=== PATIENT | female | born 1985 | race Caucasian/White ===

== ENCOUNTER 2017-01-20 08:59 | Emergency (ER) | payer OTHER ==
[2017-01-20] MEDS ORDERED: ASPIRIN 81 MG TABLET, CHEWABLE PO ONE (09:06)
[2017-01-20 10:11] LABS: ABSOLUTE BASOPHILS # (AUTO) 0.1 10^3/uL (0.0-0.2); ABSOLUTE EOSINOPHILS # (AUTO) 0.1 10^3/uL (0.0-0.6); ABSOLUTE LYMPHOCYTES (AUTO) 2.4 10^3/uL (0.5-4.7); ABSOLUTE MONOCYTES (AUTO) 0.4 10^3/uL (0.1-1.4); ABSOLUTE NEUT (AUTO) 3.5 10^3/uL (1.7-8.2); BASOPHILS % (AUTO) 0.8 % (0-2); EOSINOPHILS % (AUTO) 1.3 % (0-6); HEMATOCRIT 39.5 % (36.0-47.0); HEMOGLOBIN 13.5 g/dL (12.0-15.5); LYMPHOCYTES % (AUTO) 37.1 % (13-45); MEAN CORPUSCULAR HEMOGLOBIN 29.3 pg (27.0-33.4); MEAN CORPUSCULAR HGB CONC 34.1 g/dL (32.0-36.0); MEAN CORPUSCULAR VOLUME 86 fl (80-97); MONOCYTES % (AUTO) 6.3 % (3-13); RED CELL DISTRIBUTION WIDTH 13.7 % (11.5-14.0); SEGMENTED NEUTROPHILS % (AUTO) 54.5 % (42-78); WHITE BLOOD COUNT 6.5 10^3/uL (4.0-10.5)
[2017-01-20 10:34] LABS: ALANINE AMINOTRANSFERASE 73 U/L (9-52); ALBUMIN 4.7 g/dL (3.5-5.0); ALKALINE PHOSPHATASE 68 U/L (38-126); ANION GAP 16 (5-19); ASPARTATE AMINO TRANSFERASE 53 U/L (14-36); BILIRUBIN,DIRECT 0.1 mg/dL (0.0-0.4); BILIRUBIN,TOTAL 0.7 mg/dL (0.2-1.3); BLOOD UREA NITROGEN 11 mg/dL (7-20); CALCIUM 9.9 mg/dL (8.4-10.2); CARBON DIOXIDE 22 mmol/L (22-30); CHLORIDE 104 mmol/L (98-107); CREATINE KINASE 58 U/L (30-135); CREATININE RESULT 0.62 mg/dL (0.52-1.25); GLUCOSE 92 mg/dL (75-110); POTASSIUM 4.1 mmol/L (3.6-5.0); SODIUM 142.4 mmol/L (137-145); TOTAL PROTEIN 7.5 g/dL (6.3-8.2)
[2017-01-20 10:41] LABS: CREATINE KINASE MB 0.23 ng/mL (<4.55)
[2017-01-20 10:42] LABS: TROPONIN I < 0.012 ng/mL
--- NOTE | 2017-01-20 11:01 | ER Document Report ---
ED Cardiac - General Mode of Arrival: Ambulatory Information source: Patient TRAVEL OUTSIDE OF THE [place] IN LAST 30 DAYS: No - HPI Patient complains to provider of: Chest tightness, Shortness of breath Use of: Caffeine - Pepsi drinks Cardiac risk factors: denies: Diabetes, Smoker Associated symptoms: Other - see notes above <TANI JEWELL - Last Filed: 01/20/17 13:04> <ROBERT WILLIS - Last Filed: 01/20/17 20:25> - General Chief Complaint: Chest Pain Stated Complaint: CHEST PAIN Notes: 31-year-old female with history of a irregular heartbeat (diagnosed at 10 years of age) presents to the ED complaining of chest tightness that started 3 nights ago. Patient reports that she went to a med [facility] today and was told to go to the ED because "they can get everything done today." Patient reports that she is experiencing more frequent irregular heartbeat episodes which are accompanied with shortness of breath. She explains that shortness of breath is normally associated with her irregular heartbeat. Patient expresses concern that these episodes have become more frequent and the ease of onset of these episodes is abnormal. She explains that she lost her mother 11 days ago due to heart disease and believes that her symptoms are exacerbated due to anxiety. Patient also notes that she has noticed some swelling towards the left chest. Patient denies being . Patient claims that she does drink Pepsi daily but reports that she has been decreasing her intake. Patient denies drinking any energy drinks. Patient denies history or family history of DVTs. (TANI JEWELL) - Related Data Allergies/Adverse Reactions: codeine Allergy (Verified 01/20/17 09:05) Past Medical History - General Information source: Patient - Social History Smoking Status: Never Smoker Chew tobacco use (# tins/day): No Frequency of alcohol use: None Drug Abuse: None Family History: Reviewed & Not Pertinent Patient has suicidal ideation: No Patient has homicidal ideation: No - Past Medical History Cardiac Medical History: Reports: None, Other - Irregular heartbeat Denies: Hx DVT, Hx Hypercholesterolemia Endocrine Medical History: Denies: Hx Diabetes Mellitus Type 2 Renal/ Medical History: Denies: Hx Peritoneal Dialysis <TANI JEWELL - Last Filed: 01/20/17 13:04> Review of Systems - Review of Systems Constitutional: No symptoms reported EENT: No symptoms reported Cardiovascular: See HPI, Chest pain - "Chest tightness", Palpitations - "Irregular heartbeat episodes" Respiratory: See HPI, Short of breath Gastrointestinal: No symptoms reported Genitourinary: No symptoms reported Female Genitourinary: No symptoms reported. denies: Musculoskeletal: See HPI, Other - Swelling to the left chest Skin: No symptoms reported Hematologic/Lymphatic: No symptoms reported Neurological/Psychological: No symptoms reported -: Yes All other systems reviewed and negative <TANI JEWELL - Last Filed: 01/20/17 13:04> Physical Exam <TANI JEWELL - Last Filed: 01/20/17 13:04> <ROBERT WILLIS - Last Filed: 01/20/17 20:25> - Vital signs Vitals: Temp Pulse Resp BP Pulse Ox 98.3 F 62 16 128/82 H 96 01/20/17 09:15 01/20/17 09:15 01/20/17 09:15 01/20/17 09:15 01/20/17 09:15 - Notes Notes: GENERAL: Alert, interacts well. No acute distress. HEAD: Normocephalic, atraumatic. EYES: Pupils equal, round, and reactive to light. Extraocular movements intact. ENT: Oral mucosa moist, tongue midline. NECK: Full range of motion. Supple. Trachea midline. LUNGS: Clear to auscultation bilaterally, no wheezes, rales, or rhonchi. No respiratory distress. HEART: Regular rate and rhythm. No murmurs, gallops, or rubs. ABDOMEN: Soft, non-tender. Non-distended. Overweight. EXTREMITIES: Moves all 4 extremities spontaneously. No edema, radial and dorsalis pedis pulses 2/4 bilaterally. No cyanosis. NEUROLOGICAL: Alert and oriented x3. Normal speech. PSYCH: Normal affect, normal mood. SKIN: Warm, dry, normal turgor. No rashes or lesions noted. (TANI JEWELL) Course - Laboratory Result Diagrams: 01/20/17 09:38 01/20/17 09:38 - Diagnostic Test Radiology reviewed: Image reviewed, Reports reviewed - Chest x-ray impression: No acute radiographic findings in the chest. Chest CT impression: No evidence for pulmonary embolic disease. No acute consolidations or pleural effusions are identified. Large cystic mass in the upper abdomen as noted above which is incompletely visualized. This most likely is of ovarian etiology although other etiologies cannot be excluded. Complete CT of abdomen and pelvis with IV contrast is recommended for further evaluation. Other findings as noted above. - EKG Interpretation by Me EKG shows normal: Sinus rhythm, [place], Intervals, ST-T Waves - No ST elevation or depression. No T-wave inversion. Rate: Normal - First EK bpm, Bradycardia - Second EK bpm When compared to previous EKG there are: Other - First EKG resulted in poor voltage to lead 3 and was unable to be interpreted. Follow-up EKG was performed and showed sinus bradycardia at 55 bpm. <TANI JEWELL - Last Filed: 01/20/17 13:04> - Laboratory Result Diagrams: 01/20/17 09:38 01/20/17 09:38 <ROBERT WILLIS - Last Filed: 01/20/17 20:25> - Re-evaluation Re-evalutation: 01/20/17 20:25 CBC unremarkable, cardiac enzymes negative, CMP unremarkable except for slightly elevated AST and ALT, cardiac enzymes negative 2, hCG negative, EKG is nonischemic, CT angiogram of the chest was ordered after normal chest x-ray in order to rule out pulmonary embolism. This was negative for pulmonary embolism though it did show possible intra-abdominal mass. This is an incidental finding, recommended patient follow-up as an outpatient to have this more completely imaged as she is not having any abdominal pain or symptoms at this time. Patient is agreeable to following up with her primary care physician and her FOUNDER AND CHIEF EXECUTIVE OFFICER for further evaluation and treatment of this mass that is felt likely to be ovarian in origin. Patient is aware that it may represent cancer and she should have been worked up within the next month. (ROBERT WILLIS) - Vital Signs Vital signs: Temp Pulse Resp BP Pulse Ox 98.1 F 62 16 114/93 H 100 01/20/17 14:19 01/20/17 09:15 01/20/17 14:19 01/20/17 14:19 01/20/17 14:19 - Laboratory Laboratory results interpreted by me: 01/20/17 09:38 AST 53 H ALT 73 H Discharge <TANI JEWELL - Last Filed: 01/20/17 13:04> <ROBERT WILLIS - Last Filed: 01/20/17 20:25> - Discharge Clinical Impression: Palpitations, Chest pain with low risk for cardiac etiology, Anxiety as acute reaction to exceptional stress Mass in the abdomen Qualifiers: Abdominal location: left upper quadrant Qualified Code(s): R19.02 - Left upper quadrant abdominal swelling, mass and lump Condition: Stable Disposition: HOME, SELF-CARE Additional Instructions: Today your CAT scan showed a mass in your abdomen on the left-hand side. Radiology suspects this comes from your ovary however you must have a CAT scan of your abdomen and pelvis to find out exactly where comes from. Please talk to your FOUNDER AND CHIEF EXECUTIVE OFFICER to arrange this CAT scan as an outpatient. We need to do a CAT scan to see if it might be cancer. Today there was no sign of heart attack. Since your irregular heartbeat has become more common and more frequent is important that you follow up with your elderly caregiver as an outpatient within the next 2 weeks. They may wish to consider starting a Holter or event monitor. These palpitations may be increased due to increased anxiety and grief over your mother's . I have prescribed Prozac. This may help with some of the symptoms. Prescriptions: Fluoxetine HCl [Prozac] 20 mg PO DAILY #30 capsule Forms: Return to Work Referrals: TOMASZ TOUSSAINT, ASSOCIATE ARTISTIC DIRECTOR-C [Primary Care Provider] - Follow up in 1 week Scribe Attestation: 01/20/17 20:25 I personally performed the services described in the documentation, reviewed and edited the documentation which was dictated to the scribe in my presence, and it accurately records my words and actions. (ROBERT WILLIS) Scribe Documentation - Scribe Written by Kimberly:: Kimberly Avalos, 01/20/2017 1304 acting as scribe for :: Kerri <TANI JEWELL - Last Filed: 01/20/17 13:04>
--- NOTE | 2017-01-20 13:35 | EKG REPORT ---
SEVERITY:- NORMAL ECG - SINUS RHYTHM : Confirmed by: Jose F Bangura MD 20-Jan-2017 13:34:23
--- NOTE | 2017-01-20 13:35 | EKG REPORT ---
SEVERITY:- DEFECTIVE ECG - SINUS RHYTHM : Confirmed by: Jose F Bangura MD 20-Jan-2017 13:34:38
[2017-01-20 13:37] LABS: CREATINE KINASE MB < 0.22 ng/mL (<4.55); TROPONIN I < 0.012 ng/mL
[2017-01-20 14:24] VITALS: BP 114/93
== END 2017-01-20 14:36 | disposition home or self-care (01) ==
LOC: ER 08:59
DX: F41.9 Anxiety disorder, unspecified (principal); F43.0 Acute stress reaction; R07.89 Other chest pain; R06.02 Shortness of breath; R00.2 Palpitations; R19.02 Left upper quadrant abdominal swelling, mass and lump; R00.1 Bradycardia, unspecified; Z82.49 Family history of ischemic heart disease and other diseases of the circulatory system
CPT/HCPCS: 36415; 71010; 71275; 80053; 82550; 82553; 84484; 84703; 85025; 93005; 93010; 99285

== ENCOUNTER → 2017-01-29 | Outpatient (CLI) | payer OTHER | LOC: RAD 08:23 | PROVIDERS: ATTEND Specialist | DX: R19.07 Generalized intra-abdominal and pelvic swelling, mass and lump (principal) | CPT/HCPCS: 74177 ==

== ENCOUNTER 2017-02-10 05:10 | Inpatient (IN) | payer OTHER ==
[2017-02-06 10:14] LABS: HEMATOCRIT 40.3 % (36.0-47.0); HEMOGLOBIN 13.7 g/dL (12.0-15.5); HGB HCT DIFFERENCE 0.8; MEAN CORPUSCULAR HEMOGLOBIN 29.1 pg (27.0-33.4); MEAN CORPUSCULAR VOLUME 85 fl (80-97); RED BLOOD COUNT 4.72 10^6/uL (3.72-5.28); RED CELL DISTRIBUTION WIDTH 13.7 % (11.5-14.0); WHITE BLOOD COUNT 6.9 10^3/uL (4.0-10.5)
[2017-02-06 10:26] LABS: APPEARANCE,URINE SLIGHTLY-CLOUDY; BILIRUBIN,URINE NEGATIVE (NEGATIVE); GLUCOSE, URINE NEGATIVE (NEGATIVE); KETONES,URINE NEGATIVE (NEGATIVE); LEUKOCYTE ESTERASE,URINE NEGATIVE (NEGATIVE); NITRITE,URINE NEGATIVE (NEGATIVE); PROTEIN,URINE NEGATIVE (NEGATIVE); URINE SPECIFIC GRAVITY 1.008; UROBILINOGEN,URINE NEGATIVE mg/dL (<2.0)
[2017-02-06 10:39] LABS: ANION GAP 16 (5-19); BLOOD UREA NITROGEN 10 mg/dL (7-20); CALCIUM 10.3 mg/dL (8.4-10.2); CARBON DIOXIDE 26 mmol/L (22-30); CHLORIDE 99 mmol/L (98-107); CREATININE RESULT 0.69 mg/dL (0.52-1.25); GLUCOSE 86 mg/dL (75-110); POTASSIUM 4.6 mmol/L (3.6-5.0); SODIUM 141.4 mmol/L (137-145)
[~2017-02-10 05:10] MED LIST: CEFAZOLIN 1 GM/D5W RTU 1 GM/50 ML RTUPB IV PRN; RINGERS SOLUTION,LACTATED 1,000 ML IV PRN
[2017-02-10] MEDS ORDERED: HYDROMORPHONE HCL INJ/PF 2 MG/ML AMPULE ONE (06:41)
[2017-02-10] MEDS ORDERED: MIDAZOLAM 2 MG/2 ML INJ ONE (06:41)
[2017-02-10] MEDS ORDERED: FENTANYL CITRATE INJ/PF 250 MCG/5 ML AMPULE ONE (06:41)
[2017-02-10] MEDS ORDERED: IBUPROFEN INJ 800 MG/8 ML VIAL IV ONE (06:42)
[2017-02-10] MEDS ORDERED: PROPOFOL INJ 200 MG/20 ML VIAL IV ONE (06:42)
[2017-02-10] MEDS ORDERED: BUPIVACAINE INJ/PF LIPOSOME/PF 266 MG/20 ML SDV ONE (06:54)
[2017-02-10] MEDS ORDERED: EPHEDRINE SULFATE INJ 50 MG/1 ML AMPULE ONE (07:00)
[2017-02-10] MEDS ORDERED: FAMOTIDINE INJ/PF 20 MG/2 ML SDV IV ONE (07:04)
[2017-02-10] MEDS ORDERED: SCOPOLAMINE HYDROBROMIDE 1.5 MG PATCH.TD72 ONE (07:06)
[2017-02-10] MEDS ORDERED: ONDANSETRON HCL INJ/PF 4 MG/2 ML SDV IV PRN (07:52)
[2017-02-10] MEDS ORDERED: FENTANYL CITRATE INJ/PF 100 MCG/2 ML AMPUL IV PRN ×3 (07:52)
[2017-02-10] MEDS ORDERED: MEPERIDINE HCL/PF INJ 25 MG/1 ML DISP.SYRIN IV PRN (07:52)
[2017-02-10] MEDS ORDERED: DIPHENHYDRAMINE HCL 50 MG/ML VIAL IV PRN (07:52)
[2017-02-10] MEDS ORDERED: MORPHINE SULFATE 10 MG/ML INJ IV PRN (07:52)
[2017-02-10] MEDS ORDERED: PROMETHAZINE HCL INJ 25 MG/1 ML VIAL IV PRN ×2 (07:52)
[2017-02-10] MEDS ORDERED: NALOXONE HCL INJ/PF 0.4 MG/1 ML SDV ONE (08:38)
[2017-02-10] MEDS ORDERED: MORPHINE SULFATE 10 MG/ML INJ INJ PRN (09:44)
[2017-02-10] MEDS ORDERED: MORPHINE SULFATE 10 MG/ML INJ IM PRN (09:45)
[2017-02-10] MEDS ORDERED: ACETAMINOPHEN 100 ML IV ONE (10:09)
--- NOTE | 2017-02-10 10:18 | OPERATIVE REPORT E ---
Operative Report NAME: GÉNESIS PEOPLES : 1985 AGE: 31Y DATE OF SURGERY: 02/10/2017 ROOM: OR PREOPERATIVE DIAGNOSIS: Ovarian mass. POSTOPERATIVE DIAGNOSIS: Left ovarian mass. PROCEDURE: Exploratory laparotomy and left oophorectomy. SURGEON: SUSAN KEITA M.D. ANESTHESIA: General endotracheal. COMPLICATIONS: None. FINDINGS: Smooth glistening surfaced left ovarian mass. This was distinct from the left tube. The right tube and ovary and uterus were normal and no excrescences. Peritoneum throughout was smooth and glistening. Liver was palpated, smooth and glistening as well. Peritoneal washings were obtained. INDICATIONS FOR PROCEDURE: The patient had a symptomatic pelvic mass. CA 125 was 87. CTs demonstrated no adenopathy. There was a previous simple cyst on ultrasound as well as CT. The usual risks of bleeding, infection, anesthesia, damage to organs and tissues were discussed with the patient who understood. Possibility of further surgery was discussed with the patient should this appear to be a cancer issue. The patient seemed to understand this and agreed. PROCEDURE: The patient was taken to the operating room and placed in a modified lithotomy position. Adequate anesthesia was ascertained. Knight catheter was inserted after surgical time out was performed. The patient was in supine position. Through a midline incision, subcutaneous fat and fascia, the peritoneum was entered without difficulty. It was extended twice due to the size of the specimen. The specimen was ultimately brought into the operative field and the limits and blood supply were visualized. The proximity to the tube was clarified and using Ivana clamps the lesion was excised en toto, handed off the field and photographed. The pedicles were then closed with a 3-0 Vicryl stitch x2. Good hemostasis was assured. Peritoneal washing was obtained procedure upon entry into the abdomen. The parietal peritoneum and rectus fascia were closed with double-stranded PDS suture x2 superiorly and inferiorly. A subcuticular stitch of 3-0 plain gut was placed in the skin followed by skin carol. The patient tolerated the procedure well. All sponge and instrument counts were correct. DICTATING PHYSICIAN: SUSAN KEITA M.D. [id number] PHY#: [id number] ID: [id number] JOB#: [id number] ACCT: [id number] cc:SUSAN KEITA M.D. > JUANA
[2017-02-10] MEDS ORDERED: SUCCINYLCHOLINE CHLORIDE INJ 200 MG/10 ML VIAL ONE (11:49)
[2017-02-10] MEDS ORDERED: VECURONIUM BROMIDE INJ 10 MG VIAL IV ONE (11:49)
[2017-02-10] MEDS ORDERED: METOCLOPRAMIDE HCL INJ/PF 10 MG/2 ML SDV ONE (11:49)
[2017-02-10] MEDS ORDERED: ONDANSETRON HCL INJ/PF 4 MG/2 ML SDV ONE (11:49)
[2017-02-10] MEDS ORDERED: LIDOCAINE 2% INJ-PF (20 MG/ML) 10 ML AMPUL ONE (11:49)
[2017-02-10] MEDS ORDERED: GLYCOPYRROLATE INJ 0.4 MG/2 ML VIAL ONE (11:49)
[2017-02-10] MEDS ORDERED: DEXAMETHASONE SOD PHOSPHATE INJ 4 MG/1 ML VIAL ONE (11:49)
[2017-02-10] MEDS ORDERED: NEOSTIGMINE METHYLSULFATE 10 MG/10 ML VIAL ONE (11:49)
[2017-02-10] MEDS ORDERED: KETOROLAC TROMETHAMINE 60 MG/2 ML SDV ONE (11:49)
[2017-02-10] MEDS: RINGERS SOLUTION,LACTATED 1,000 ML IV PRN ×2 (12:14→20:24)
[2017-02-10] MEDS: CEFAZOLIN 1 GM/D5W RTU 1 GM/50 ML RTUPB IV SCH ×2 (12:14→18:01)
[2017-02-10] MEDS: IBUPROFEN 800 MG TABLET PO SCH ×2 (14:01→22:02)
[2017-02-10] MEDS ORDERED: HYDROMORPHONE HCL 2 MG TABLET PO PRN ×2 (14:19→14:21)
[2017-02-10] MEDS: MORPHINE SULFATE 10 MG/ML INJ INJ PRN (14:50)
[2017-02-11] MEDS ORDERED: RINGERS SOLUTION,LACTATED 500 ML IV ONE ×2 (01:15→10:00)
[2017-02-11] MEDS ORDERED: DIPHENHYDRAMINE HCL 25 MG CAPSULE PO PRN (05:00)
[2017-02-11] MEDS: IBUPROFEN 800 MG TABLET PO SCH ×3 (05:59→21:22)
[2017-02-11] MEDS: ONDANSETRON HCL INJ/PF 4 MG/2 ML SDV IV PRN ×3 (06:42→20:20)
[2017-02-11] MEDS: MORPHINE SULFATE 10 MG/ML INJ INJ PRN (06:42)
[2017-02-11 06:47] LABS: HEMATOCRIT 22.8 % (36.0-47.0); HGB HCT DIFFERENCE -0.3; MEAN CORPUSCULAR HEMOGLOBIN 28.6 pg (27.0-33.4); MEAN CORPUSCULAR HGB CONC 32.9 g/dL (32.0-36.0); MEAN CORPUSCULAR VOLUME 87 fl (80-97); RED BLOOD COUNT 2.63 10^6/uL (3.72-5.28); RED CELL DISTRIBUTION WIDTH 13.8 % (11.5-14.0); WHITE BLOOD COUNT 11.7 10^3/uL (4.0-10.5)
[2017-02-11 06:52] LABS: HEMOGLOBIN 7.5 g/dL (12.0-15.5)
[2017-02-11] MEDS: RINGERS SOLUTION,LACTATED 1,000 ML IV PRN ×2 (08:03→09:50)
[2017-02-11] MEDS: ACETAMINOPHEN 325 MG TABLET PO PRN (11:41)
[2017-02-11] MEDS: FLUOXETINE HCL 20 MG CAPSULE PO SCH (14:42)
[2017-02-11] MEDS: PROMETHAZINE HCL INJ 50 MG/1 ML VIAL IM PRN (15:49)
[2017-02-11 19:02] LABS: HEMATOCRIT 27.8 % (36.0-47.0); HEMOGLOBIN 9.3 g/dL (12.0-15.5); HGB HCT DIFFERENCE 0.1; MEAN CORPUSCULAR HEMOGLOBIN 28.4 pg (27.0-33.4); MEAN CORPUSCULAR HGB CONC 33.6 g/dL (32.0-36.0); MEAN CORPUSCULAR VOLUME 85 fl (80-97); RED BLOOD COUNT 3.28 10^6/uL (3.72-5.28); RED CELL DISTRIBUTION WIDTH 14.9 % (11.5-14.0); WHITE BLOOD COUNT 9.5 10^3/uL (4.0-10.5)
[2017-02-12] MEDS ORDERED: PROMETHAZINE HCL INJ 50 MG/1 ML VIAL ONE (01:27)
[2017-02-12] MEDS: PROMETHAZINE HCL INJ 50 MG/1 ML VIAL IM PRN (01:28)
[2017-02-12] MEDS: IBUPROFEN 800 MG TABLET PO SCH ×3 (06:01→21:42)
[2017-02-12] MEDS: RINGERS SOLUTION,LACTATED 1,000 ML IV PRN ×3 (06:21→21:43)
[2017-02-12 07:12] LABS: ABSOLUTE LYMPHOCYTES (AUTO) 2.1 10^3/uL (0.5-4.7); ABSOLUTE MONOCYTES (AUTO) 0.8 10^3/uL (0.1-1.4); ABSOLUTE NEUT (AUTO) 4.9 10^3/uL (1.7-8.2); BASOPHILS % (AUTO) 0.3 % (0-2); EOSINOPHILS % (AUTO) 0.1 % (0-6); HEMATOCRIT 26.8 % (36.0-47.0); HEMOGLOBIN 9.3 g/dL (12.0-15.5); HGB HCT DIFFERENCE 1.1; LYMPHOCYTES % (AUTO) 27.2 % (13-45); MEAN CORPUSCULAR HEMOGLOBIN 29.2 pg (27.0-33.4); MEAN CORPUSCULAR HGB CONC 34.7 g/dL (32.0-36.0); MEAN CORPUSCULAR VOLUME 84 fl (80-97); MONOCYTES % (AUTO) 9.6 % (3-13); RED BLOOD COUNT 3.19 10^6/uL (3.72-5.28); SEGMENTED NEUTROPHILS % (AUTO) 62.8 % (42-78); WHITE BLOOD COUNT 7.9 10^3/uL (4.0-10.5)
[2017-02-12 07:27] LABS: ANION GAP 9 (5-19); BLOOD UREA NITROGEN 8 mg/dL (7-20); CALCIUM 8.6 mg/dL (8.4-10.2); CARBON DIOXIDE 28 mmol/L (22-30); CHLORIDE 103 mmol/L (98-107); CREATININE RESULT 0.58 mg/dL (0.52-1.25); GLUCOSE 95 mg/dL (75-110); POTASSIUM 4.1 mmol/L (3.6-5.0); SODIUM 139.7 mmol/L (137-145)
[2017-02-12] MEDS: FLUOXETINE HCL 20 MG CAPSULE PO SCH (13:09)
[2017-02-12] MEDS: ONDANSETRON HCL INJ/PF 4 MG/2 ML SDV IV PRN (16:56)
--- NOTE | 2017-02-12 17:05 | RADIOLOGY REPORT (SQ) ---
EXAM DESCRIPTION: CTA CHEST COMPLETED DATE/TIME: 02/12/2017 4:45 pm REASON FOR STUDY: Checking for PE, SOB N83.299 OTHER OVARIAN CYST, UNSPECIFIED SIDE COMPARISON: 01/20/2017 and 01/29/2017 TECHNIQUE: CT scan of the chest performed using helical scanning technique with dynamic intravenous contrast injection. Images reviewed with lung, soft tissue and bone windows. Reconstructed coronal and sagittal MPR images reviewed. Additional 3 dimensional post-processing performed to develop Maximal Intensity Projection images (WA P). All images stored on PACS. All CT scanners at this facility use dose modulation, iterative reconstruction, and/or weight based d osing when appropriate to reduce radiation dose to as low as reasonably achievable (ALARA). [facility]: Dose Right [facility]: CareDose [facility]: Dose Right [facility]: Teradose 4D [facility]: Nommunity CONTRAST TYPE AND DOSE: 72 mL Isovue 370- low osmolar. RENAL FUNCTION: GFR > 60. RADIATION DOSE: 48.76 mGy. LIMITATIONS: Mild breathing motion artifact. FINDINGS: LUNGS AND PLEURA: Multi lobar Patchy consolidation -atelectasis is present in the right an d left lungs, basilar predominance. Small bilateral pleural effusions. AORTA AND GREAT VESSELS: No aneurysm or dissection. HEART: No pericardial effusion. PULMONARY ARTERIES: No emboli visualized in the main pulmonary arteries or the segmental branches. HILAR AND MEDIASTINAL STRUCTURES: Small nodes. HARDWARE: None in the chest. UPPER ABDOMEN: Small amount of scattered free fluid fatty liver. The previously seen abdominal mass is not included in the field of view. Limited exam. THYROID AND OTHER SOFT TISSUES: 2.3 cm heterogeneous nodule in the right thyroid. No adenopathy. BONES: No acute or significant finding. 3D MIPS: Confirm above findings. OTHER: No other significant finding. IMPRESSION: Multi lobar Patchy consolidation -atelectasis is present in the right and left lungs, ba silar predominance. Small bilateral pleural effusions. No pulmonary arterial emboli identified. 2.3 cm heterogeneous nodule in the right thyroid. TECHNICAL DOCUMENTATION: JOB ID: [id number] Quality ID # [id number]: Final reports with documentation of one or more dose reduction techniques (e.g., Au tomated exposure control, adjustment of the mA and/or kV according to patient size, use of iterative reconstruction technique) 2010 [employer]- All Rights Reserved
--- NOTE | 2017-02-12 18:43 | PDOC CONSULTATION ---
Consultation Consult Date: 02/12/17 Attending physician:: SUSAN KEITA Consult reason:: Hypoxia History of Present Illness Admission Date/PCP: 02/10/17 05:10 SUSAN KEITA MD Patient complains of: Shortness of breath History of Present Illness: GÉNESIS PEOPLES is a 31 year old female who has been in good health until earlier this month when she presented to the emergency room with complaints of chest pain. Patient had a chest CTA done at that time which was unremarkable except she was found to have an abdominal mass. The patient was seen by gynecology who performed surgery for removal of a large ovarian cyst. The patient has since then had complaints of shortness of breath. She reports that she becomes dyspneic with walking to the bathroom and back. She also has been noted to be hypoxic with oxygen saturations that dropped down to 87% in spite of being on 2 L of nasal cannula. The patient denies having any chest pain associated with this. She has received several units of packed red blood cells because of anemia postoperatively. The patient does also report having a productive cough with yellow sputum. A chest CTA was done again today and shows her to have bilateral patchy infiltrates. Patient does relate having some orthopnea. And minimal lower extremity edema. Past Medical History Cardiac Medical History: Reports: Other - Reports having an irregular heart rhythms since childhood. Pulmonary Medical History: Reports: None EENT Medical History: Reports: None Neurological Medical History: Reports: None Endocrine Medical History: Reports: None Renal/ Medical History: Reports: None Malignancy Medical History: Reports: None GI Medical History: Reports: None Musculoskeltal Medical History: Reports: None Psychiatric Medical History: Reports: Depression - Recently diagnosed after the of her mother last month. Traumatic Medical History: Reports: None Hematology: Reports: None Infectious Medical History: Reports: None Past Surgical History Past Surgical History: Reports: None Social History Information Source: Patient Lives with: Family Smoking Status: Never Smoker Frequency of Alcohol Use: None Hx Recreational Drug Use: No Hx Prescription Drug Abuse: No - Advance Directive Resuscitation Status: Full Code Family History Family History: Mother last month at age 47 from coronary artery disease. Biological father's health history is unknown Parental Family History Reviewed: Yes Children Family History Reviewed: No Sibling(s) Family History Reviewed.: No Medication/Allergy Home Medications: Biotin [Biotin 5 mg Tablet] 15 mg PO DAILY 02/12/17 Fluoxetine HCl [Prozac 20 mg Capsule] 20 mg PO DAILY 02/12/17 Loratadine [Claritin 10 mg Tablet] 10 mg PO DAILY 02/12/17 Allergies/Adverse Reactions: codeine Allergy (Verified 02/06/17 10:34) Review of Systems Constitutional: ABSENT: chills, fever(s), headache(s), weight gain, weight loss Eyes: ABSENT: visual disturbances Ears: ABSENT: hearing changes Cardiovascular: PRESENT: dyspnea on exertion, edema, orthropnea, palpitations. ABSENT: chest pain Respiratory: PRESENT: cough, dyspnea, sputum. ABSENT: hemoptysis Gastrointestinal: ABSENT: abdominal pain, constipation, diarrhea, hematemesis, hematochezia, nausea, vomiting Genitourinary: ABSENT: dysuria, hematuria Musculoskeletal: ABSENT: joint swelling Integumentary: ABSENT: rash, wounds Neurological: ABSENT: abnormal gait, abnormal speech, confusion, dizziness, focal weakness, syncope Psychiatric: PRESENT: depression Endocrine: ABSENT: cold intolerance, heat intolerance, polydipsia, polyuria Hematologic/Lymphatic: ABSENT: easy bleeding, easy bruising Physical Exam Vital Signs: Temp Pulse Resp BP Pulse Ox 100.0 F 76 16 104/59 L 94 02/12/17 15:24 02/12/17 15:24 02/12/17 15:24 02/12/17 15:24 02/12/17 15:24 Intake & Output 02/11/17 02/12/17 02/13/17 06:59 06:59 06:59 Intake Total 1950 2140 Output Total 1000 3550 Balance 950 -1410 General appearance: PRESENT: no acute distress Head exam: PRESENT: atraumatic, normocephalic Eye exam: PRESENT: conjunctiva pink, EOMI, PERRLA. ABSENT: scleral icterus Ear exam: PRESENT: normal external ear exam Mouth exam: PRESENT: moist, tongue midline Neck exam: ABSENT: carotid bruit, JVD, lymphadenopathy, thyromegaly Respiratory exam: PRESENT: decreased breath sounds - Decreased breath sounds in the bases.. ABSENT: rales, rhonchi, wheezes Cardiovascular exam: PRESENT: RRR. ABSENT: diastolic murmur, rubs, systolic murmur Pulses: PRESENT: normal dorsalis pedis pul Vascular exam: PRESENT: normal capillary refill GI/Abdominal exam: PRESENT: other - Patient has a midline surgical wound with carol. Clean dry and intact. Rectal exam: PRESENT: deferred Extremities exam: PRESENT: pedal edema - Trace pretibial edema. ABSENT: calf tenderness, clubbing Neurological exam: PRESENT: alert, awake, oriented to person, oriented to place , oriented to time, oriented to situation, CN II-XII grossly intact. ABSENT: motor sensory deficit Psychiatric exam: PRESENT: appropriate affect Skin exam: PRESENT: dry, intact, warm, other - Abdomen has the surgical wound but is dry clean and intact. ABSENT: cyanosis, rash Results Laboratory Results: 02/12/17 06:47 02/12/17 06:47 02/11/17 02/11/17 02/12/17 09:54 18:50 06:47 WBC 9.5 7.9 RBC 3.28 L 3.19 L Hgb 9.3 L 9.3 L Hct 27.8 L 26.8 L MCV 85 84 MCH 28.4 29.2 MCHC 33.6 34.7 RDW 14.9 H 15.0 H Plt Count 163 136 L Seg Neutrophils % 62.8 Lymphocytes % 27.2 Monocytes % 9.6 Eosinophils % 0.1 Basophils % 0.3 Absolute Neutrophils 4.9 Absolute Lymphocytes 2.1 Absolute Monocytes 0.8 Absolute Eosinophils 0.0 Absolute Basophils 0.0 Sodium Potassium Chloride Carbon Dioxide Anion Gap BUN Creatinine Est GFR ( Amer) Est GFR (Non-Af Amer) Glucose Calcium Blood Type A POSITIVE Antibody Screen NEGATIVE 02/12/17 06:47 WBC RBC Hgb Hct MCV MCH MCHC RDW Plt Count Seg Neutrophils % Lymphocytes % Monocytes % Eosinophils % Basophils % Absolute Neutrophils Absolute Lymphocytes Absolute Monocytes Absolute Eosinophils Absolute Basophils Sodium 139.7 Potassium 4.1 Chloride 103 Carbon Dioxide 28 Anion Gap 9 BUN 8 Creatinine 0.58 Est GFR ( Amer) > 60 Est GFR (Non-Af Amer) > 60 Glucose 95 Calcium 8.6 Blood Type Antibody Screen Impressions: Chest/Abdomen CTA 02/12/17 00:00 IMPRESSION: Multi lobar Patchy consolidation -atelectasis is present in the right and left lungs, basilar predominance. Small bilateral pleural effusions. No pulmonary arterial emboli identified. 2.3 cm heterogeneous nodule in the right thyroid. Assessment & Plan - Diagnosis (1) Hypoxia Is this a current diagnosis for this admission?: YesPlan: Patient has patchy infiltrates on the chest with the suggestive of pneumonia. We will start the patient on Levaquin and obtain blood and sputum cultures. Patient also does have some pretibial edema as well as some orthopnea. She has received packed red blood cells. Will give Lasix dose 1. We will also check a BNP. If her BNP comes back abnormal would recommend that we get an echocardiogram tomorrow. We will check an ABG to make certain she does not have any CO2 retention. The possibility of this being narcotic related is considered however she seemed alert and oriented at the time of my interview and this does not appear to be related to medications. The patient had no obvious pulmonary embolism present on the chest CT. (2) Pneumonia Is this a current diagnosis for this admission?: YesPlan: Patient will be started on Levaquin. Will obtain blood and sputum cultures. - Time Time Spent: 50 to 70 Minutes - Inpatient Certification Medical Necessity: Need Close Monitoring Due to Risk of Patient Decompensation, Need for IV Antibiotics
[2017-02-12 19:12] LABS: ABSOLUTE LYMPHOCYTES (AUTO) 1.3 10^3/uL (0.5-4.7); ABSOLUTE MONOCYTES (AUTO) 0.7 10^3/uL (0.1-1.4); ABSOLUTE NEUT (AUTO) 5.8 10^3/uL (1.7-8.2); BASOPHILS % (AUTO) 0.2 % (0-2); EOSINOPHILS % (AUTO) 0.1 % (0-6); HEMATOCRIT 27.4 % (36.0-47.0); HEMOGLOBIN 9.4 g/dL (12.0-15.5); HGB HCT DIFFERENCE 0.8; LYMPHOCYTES % (AUTO) 17.1 % (13-45); MEAN CORPUSCULAR HEMOGLOBIN 29.3 pg (27.0-33.4); MEAN CORPUSCULAR HGB CONC 34.5 g/dL (32.0-36.0); MEAN CORPUSCULAR VOLUME 85 fl (80-97); MONOCYTES % (AUTO) 8.8 % (3-13); RED BLOOD COUNT 3.22 10^6/uL (3.72-5.28); SEGMENTED NEUTROPHILS % (AUTO) 73.8 % (42-78); WHITE BLOOD COUNT 7.8 10^3/uL (4.0-10.5)
[2017-02-12] MEDS ORDERED: FUROSEMIDE INJ/PF 20 MG/2 ML SDV IV ONE (20:00)
[2017-02-12] MEDS: LEVOFLOXACIN 750 MG/D5W RTU 750 MG/150 ML RTUPB IV SCH (20:30)
[2017-02-12 20:48] LABS: ARTERIAL BLOOD BASE EXCESS 3.3 mmol/L; ARTERIAL BLOOD O2 SATURATION 95.7 % (94-98)
[2017-02-13] MEDS: IBUPROFEN 800 MG TABLET PO SCH ×3 (05:20→22:31)
[2017-02-13] MEDS: RINGERS SOLUTION,LACTATED 1,000 ML IV PRN ×2 (05:24→05:37)
--- NOTE | 2017-02-13 10:42 | PDOC PROGRESS REPORT ---
Subjective Progress Note for:: 02/13/17 Subjective:: Shortness of breath has improved. Physical Exam Vital Signs: Temp Pulse Resp BP Pulse Ox 98.0 F 64 16 121/66 97 02/13/17 07:40 02/13/17 07:40 02/13/17 07:40 02/13/17 07:40 02/13/17 07:40 Intake & Output 02/12/17 02/13/17 02/14/17 06:59 06:59 06:59 Intake Total 2140 540 Output Total 3550 1999 Balance -1410 -1460 General appearance: PRESENT: no acute distress Eye exam: PRESENT: conjunctiva pink. ABSENT: scleral icterus Mouth exam: PRESENT: moist, tongue midline Neck exam: ABSENT: JVD Respiratory exam: PRESENT: clear to auscultation catarino. ABSENT: rales, rhonchi, wheezes Cardiovascular exam: PRESENT: RRR. ABSENT: diastolic murmur, rubs, systolic murmur GI/Abdominal exam: PRESENT: normal bowel sounds, soft. ABSENT: distended, guarding, mass, organolmegaly, rebound, tenderness Extremities exam: ABSENT: calf tenderness, clubbing, pedal edema Neurological exam: PRESENT: alert, awake, oriented to person, oriented to place , oriented to time, oriented to situation, CN II-XII grossly intact. ABSENT: motor sensory deficit Psychiatric exam: PRESENT: appropriate affect Skin exam: PRESENT: dry, intact, warm. ABSENT: cyanosis, rash Results Laboratory Results: 02/12/17 18:45 02/12/17 06:47 02/12/17 02/12/17 18:45 20:35 WBC 7.8 RBC 3.22 L Hgb 9.4 L Hct 27.4 L MCV 85 MCH 29.3 MCHC 34.5 RDW 15.0 H Plt Count 133 L Seg Neutrophils % 73.8 Lymphocytes % 17.1 Monocytes % 8.8 Eosinophils % 0.1 Basophils % 0.2 Absolute Neutrophils 5.8 Absolute Lymphocytes 1.3 Absolute Monocytes 0.7 Absolute Eosinophils 0.0 Absolute Basophils 0.0 Carbonic Acid 1.23 HCO3/H2CO3 Ratio 22:1 ABG pH 7.45 ABG pCO2 40.9 ABG pO2 76.1 L ABG HCO3 27.6 H ABG O2 Saturation 95.7 ABG Base Excess 3.3 FiO2 2.5L 02/12/17 18:45 NT-Pro-B Natriuret Pep 1170 H Impressions: Chest/Abdomen CTA 02/12/17 00:00 IMPRESSION: Multi lobar Patchy consolidation -atelectasis is present in the right and left lungs, basilar predominance. Small bilateral pleural effusions. No pulmonary arterial emboli identified. 2.3 cm heterogeneous nodule in the right thyroid. Assessment & Plan - Diagnosis (1) Hypoxia Is this a current diagnosis for this admission?: YesPlan: Patient reports that she is feeling better after getting IV Lasix yesterday. Patient was started on Levaquin empirically for the possibility of pneumonia and was given IV Lasix. Her BNP came back elevated and echocardiogram has been ordered for today. Given her volume overload and her strong family history of coronary artery disease I have recommended that we consult cardiology. We will give an additional dose of Lasix today. (2) Pneumonia Is this a current diagnosis for this admission?: YesPlan: Patient's CTA showed questionable infiltrate. This could possibly related to volume overload and not pneumonia. Would however recommend that we continue with the Levaquin for 5 days total. - Time Time Spent with patient: 25-34 minutes - Inpatient Certification Medical Necessity: Need Close Monitoring Due to Risk of Patient Decompensation, Need for IV Antibiotics
[2017-02-13] MEDS ORDERED: FUROSEMIDE INJ/PF 20 MG/2 ML SDV IV ONE (10:45)
[2017-02-13] MEDS: ACETAMINOPHEN 325 MG TABLET PO PRN ×2 (11:39→18:12)
[2017-02-13] MEDS: FLUOXETINE HCL 20 MG CAPSULE PO SCH (12:54)
--- NOTE | 2017-02-13 13:57 | XCELERA REPORT ---
[address] [address] Transthoracic Echocardiogram Report Name: GÉNESIS PEOPLES Age: 31 yrs Gender: Female : 1985 Patient Status: Inpatient Patient Location: 2N\S\210\S\A Study Date: 02/13/2017 10:40 AM Height: 60 in Weight: 200 lb BSA: 1.9 m2 Procedure: A complete two-dimensional transthoracic echocardiogram was performed (2D, M-mode, spectral and color flow Doppler). The study was technically difficult with many images being suboptimal in quality. The apical views were difficult to obtain and are suboptimal in quality. The subcostal views were difficult to obtain and are suboptimal in quality. Reason For Study: hypoxia Ordering Physician: PETRONA HILL Performed By: Makayla Sol Interpretation Summary The study was technically difficult with many images being suboptimal in quality. LV diastolic function not assessed. There is normal left ventricular wall thickness. The left ventricle is grossly normal size. Wall motion cannot be accurately commented on, but no definite regional wall motion abnormalities noted. The right ventricular systolic function is normal. The right atrium is normal in size The left atrium is mildly dilated. There is a trace to mild amount of mitral regurgitation There is no mitral valve stenosis. There is no aortic valve stenosis No aortic regurgitation is present. There is a mild amount of tricuspid regurgitation There is mild to moderate pulmonary hypertension by echo Best estimated RVSP is approximately 45 mm/Hg. The inferior vena cava appeared normal and decreased < 50% with respiration (RAP 10-15 mmHg) The aortic root is not well visualized but is probably normal size. Minimal pericardial effusion. MMode/2D Measurements \T\ Calculations RVDd: 2.5 cm LVIDd: 5.1 cm FS: 40.1 % Ao root diam: 2.6 cm IVSd: 0.82 cm LVIDs: 3.1 cm EDV(Teich): 124.5 ml LVPWd: 0.85 cm ESV(Teich): 36.8 ml Ao root area: 5.3 cm2 EF(Teich): 70.4 % LA dimension: 3.8 cm Doppler Measurements \T\ Calculations MV E max nano: MV P1/2t max nano: Ao V2 max: LV V1 max P.3 cm/sec 89.8 cm/sec 144.6 cm/sec 5.2 mmHg MV A max nano: MV P1/2t: 55.3 msec Ao max PG: LV V1 max: 56.8 cm/sec 8.4 mmHg 114.5 cm/sec MV E/A: 1.6 MVA(P1/2t): 4.0 cm2 MV dec slope: 476.1 cm/sec2 MV dec time: 0.19 sec PA V2 max: PI end-d nano: TR max nano: 93.8 cm/sec 158.1 cm/sec 333.9 cm/sec PA max PG: TR max P.5 mmHg 44.6 mmHg Left Ventricle The left ventricle is grossly normal size. There is normal left ventricular wall thickness. The left ventricular ejection fraction is normal. LV diastolic function not assessed. Wall motion cannot be accurately commented on, but no definite regional wall motion abnormalities noted. Right Ventricle The right ventricle is grossly normal size. There is normal right ventricular wall thickness. The right ventricular systolic function is normal. Atria The right atrium is normal in size. The left atrium is mildly dilated. Interarterial septum not well visualized and not well dopplered. Cannot comment on ASD/PFO presence. Mitral Valve The mitral valve is grossly normal. There is no mitral valve stenosis. There is a trace to mild amount of mitral regurgitation. Aortic Valve The aortic valve is trileaflet and normal in structure. The gradient across the valve reflects no hemodynamically significant degree of stenosis. No insufficiency seen. There is no aortic valve stenosis. No aortic regurgitation is present. Tricuspid Valve The tricuspid valve is not well visualized, but is grossly normal. There is no tricuspid stenosis. There is a mild amount of tricuspid regurgitation. There is mild to moderate pulmonary hypertension by echo. Best estimated RVSP is approximately 45 mm/Hg. Pulmonic Valve The pulmonic valve is not well visualized. Great Vessels The aortic root is not well visualized but is probably normal size. The inferior vena cava appeared normal and decreased < 50% with respiration (RAP 10-15 mmHg). Effusions Minimal pericardial effusion. : PETRONA HILL > Danyelle Rice
--- NOTE | 2017-02-13 18:42 | EKG REPORT ---
SEVERITY:- NORMAL ECG - SINUS RHYTHM : Confirmed by: Jose F Bangura MD 13-Feb-2017 18:41:45
--- NOTE | 2017-02-13 19:28 | PDOC CONSULTATION ---
Consultation Consult Date: 02/13/17 Attending physician:: PETRONA HILL Consult reason:: Shortness of breath, CHF History of Present Illness Admission Date/PCP: 02/10/17 05:10 SUSAN KEITA MD Patient complains of: Shortness of breath History of Present Illness: GÉNESIS PEOPLES is a 31 year old female who has been in good health until earlier this month when she presented to the emergency room with complaints of chest pain. Patient had a chest CTA done at that time which was unremarkable except she was found to have an abdominal mass. The patient was seen by gynecology who performed surgery for removal of a large ovarian cyst. The patient has since then had complaints of shortness of breath. She reports that she becomes dyspneic with walking to the bathroom and back. She also has been noted to be hypoxic with oxygen saturations that dropped down to 87% in spite of being on 2 L of nasal cannula. The patient denies having any chest pain associated with this. She has received several units of packed red blood cells because of anemia postoperatively. The patient does also report having a productive cough with yellow sputum. A chest CTA was done again today and shows her to have bilateral patchy infiltrates. Patient does relate having some orthopnea. And minimal lower extremity edema. Patient had lab work performed which showed BNP being elevated. A 2D echo was performed which I have reviewed. I did order a 12-lead EKG. On questioning patient did admit to having history of habitual snoring, daytime fatigue and sleepiness. Patient had never been diagnosed to have sleep apnea. Patient also describes having had gained significant weight recently. Past Medical History Cardiac Medical History: Reports: Other - Reports having an irregular heart rhythms since childhood. Denies: Atrial Fibrillation, Congestive Heart Failure, Coronary Artery Disease, Myocardial Infarction, Hyperlipidema, Hypertension, Peripheral Vascular Disease, Heart Murmur Pulmonary Medical History: Reports: None EENT Medical History: Reports: None Neurological Medical History: Reports: None Endocrine Medical History: Reports: None Renal/ Medical History: Reports: None Denies: End Stage Renal Disease Malignancy Medical History: Reports: None Denies: Breast Cancer, Cervical Cancer, Ovarian Cancer GI Medical History: Reports: None Musculoskeltal Medical History: Reports: None Psychiatric Medical History: Reports: Depression - Recently diagnosed after the of her mother last month. Denies: Bipolar Disorder, Post Traumatic Stress Disorder Traumatic Medical History: Reports: None Hematology: Reports: None Infectious Medical History: Reports: None Past Surgical History Past Surgical History: Reports: None, Other - Patient just admitted post ovarian cyst removal Social History Information Source: Patient Lives with: Family Smoking Status: Never Smoker Frequency of Alcohol Use: None Hx Recreational Drug Use: No Hx Prescription Drug Abuse: No - Advance Directive Resuscitation Status: Full Code Family History Family History: Reviewed & Not Pertinent Parental Family History Reviewed: Yes Children Family History Reviewed: Yes Sibling(s) Family History Reviewed.: Yes Medication/Allergy Home Medications: Biotin [Biotin 5 mg Tablet] 15 mg PO DAILY 02/12/17 Fluoxetine HCl [Prozac 20 mg Capsule] 20 mg PO DAILY 02/12/17 Loratadine [Claritin 10 mg Tablet] 10 mg PO DAILY 02/12/17 Allergies/Adverse Reactions: codeine Allergy (Verified 02/06/17 10:34) Review of Systems Review of Systems: Please see history of present illness and past medical history as wall. Constitutional: No fever or chills reported. Head : No recent chronic headaches, recent head injury. Eyes: No recent eye pain, diplopia, redness, discharge, acute visual changes. Ears: No recent chronic ear pain, acute hearing loss, ear discharge. Oral cavity: No recent ulcerations, bleeding, oral cavity discomfort. Neck: No recent acute neck pain reported. Hematologic: No recent easy bruising or bleeding or hematologic malignancy reported. Lymphatic: No recent lymphatic malignancy, chronic lymphadenopathy reported yet Cardiovascular system review: See history of present illness. Respiratory system review: No recent chronic cough, hemoptysis, blood clots in the lungs reported. Mild Shortness of breath on exertion Gastrointestinal system review: Negative for any recent acute or chronic abdominal pain, hematemesis, melena, recent change in bowel habits. Genitourinary system review: No recent acute or chronic hematuria, flank pain, UTI etc. reported. Skin system review: Negative for any recent abnormal bruising, no rash, no pruritus reported. Neurologic: No prior history of strokes, mini strokes, seizure disorder. Psychologic: No history of major psychosis or major depression reported. Musculoskeletal: Minor aches and pains reported. No acute joint swelling reported. Endocrine: No recent polyuria, polydipsia, recent heat or cold intolerance. Physical Exam Vital Signs: Temp Pulse Resp BP Pulse Ox 98.4 F 69 20 118/67 91 L 02/13/17 15:04 02/13/17 15:04 02/13/17 15:04 02/13/17 15:04 02/13/17 15:04 Intake & Output 02/12/17 02/13/17 02/14/17 06:59 06:59 06:59 Intake Total 2140 540 1140 Output Total 3550 2000 3200 Balance -1410 -1460 -2060 Exam: GENERAL: well-nourished and in no acute distress. Alert and oriented x3 HEAD: Atraumatic, normocephalic. EYES: Pupils equal round and reactive to light, extraocular movements intact, sclera anicteric, conjunctiva are normal. ENT: TMs normal, nares patent, oropharynx clear without exudates. Moist mucous membranes. No oral ulcerations or bleeding gums noted NECK: supple without lymphadenopathy. Trachea is central. No cervical or axillary lymphadenopathy noted. Carotids are 2+, JVD 10-12 cm LUNGS: Respiration seems nonlabored, no significant accessory muscle action noted. Few bibasilar fine crackles noted. No wheezes rales or rhonchi noted. No significant dullness noted on percussion. CHEST: Palpation of the chest wall shows no significant chest wall tenderness. No other significant abnormalities noted. 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 ABDOMEN: Soft, no significant tenderness appreciated, normoactive bowel sounds. No guarding, no rebound. No rigidity noted . No masses appreciated. EXTREMITIES: Pedal pulses are 1-2+, no calf tenderness noted. No clubbing or cyanosis. 1+ pedal edema noted NEUROLOGICAL: Focused neurological exam showed no significant neurologic deficit. Normal speech, no focal weakness appreciated. PSYCH: Normal mood, normal affect. Judgment and insight within normal limits. SKIN: No significant ecchymosis, rash, ulcerations or signs of pruritus noted. MUSCULOSKELETAL EXAM: No significant joint swelling noted. Results Laboratory Results: 02/12/17 18:45 02/12/17 06:47 02/12/17 20:35 Carbonic Acid 1.23 HCO3/H2CO3 Ratio 22:1 ABG pH 7.45 ABG pCO2 40.9 ABG pO2 76.1 L ABG HCO3 27.6 H ABG O2 Saturation 95.7 ABG Base Excess 3.3 FiO2 2.5L 02/12/17 18:45 NT-Pro-B Natriuret Pep 1170 H EKG Comments: Shows sinus rhythm, and is WNL Impressions: Chest/Abdomen CTA 02/12/17 00:00 IMPRESSION: Multi lobar Patchy consolidation -atelectasis is present in the right and left lungs, basilar predominance. Small bilateral pleural effusions. No pulmonary arterial emboli identified. 2.3 cm heterogeneous nodule in the right thyroid. Assessment & Plan - Diagnosis (1) CHF (congestive heart failure) Qualifiers: Congestive heart failure type: diastolic Congestive heart failure chronicity: acute Qualified Code(s): I50.31 - Acute diastolic (congestive ) heart failure Is this a current diagnosis for this admission?: Yes (2) Atelectasis of both lungs Is this a current diagnosis for this admission?: Yes (3) Hypoxia Is this a current diagnosis for this admission?: Yes (4) Sleep disorder breathing Is this a current diagnosis for this admission?: Yes (5) Pulmonary hypertension Is this a current diagnosis for this admission?: Yes - Notes Notes: CHF: Slaughter to be related to volume overload in the setting of diastolic dysfunction. Agree with IV Lasix. Atelectasis both lung bases: This is possibly because of hypoxemia. Patient will benefit from incentive spirometry. Hypoxemia: Related to height atelectasis and CHF. Pulmonary embolism ruled out. Sleep disordered breathing: Patient physical exam and symptoms suggest underlying sleep apnea syndrome. Patient has been advised to undergo a sleep study. Pulmonary hypertension: Most likely related to diastolic dysfunction. Will consider repeating the echo in several weeks. Patient advised salt and fluid restriction, weight loss etc. Patient is agreeable to follow-up with me. - Time Time Spent: 30 to 50 Minutes - CODE STATUS was discussed, patient remains full code. Surrogate decision-maker unchanged. Multiple medical problems were addressed. More than 50% of the time spent coordinating care, discussing management plans with involved caregivers. Management plans discussed with involved personnels. Medical decision making was of moderate to high complexity , patient's has multiple comorbidities. Medications reviewed and adjusted accordingly: Yes
[2017-02-13] MEDS: LEVOFLOXACIN 750 MG/D5W RTU 750 MG/150 ML RTUPB IV SCH (20:39)
[2017-02-14] MEDS: IBUPROFEN 800 MG TABLET PO SCH (05:00)
[2017-02-14 06:28] LABS: ANION GAP 11 (5-19); BLOOD UREA NITROGEN 14 mg/dL (7-20); CALCIUM 8.9 mg/dL (8.4-10.2); CARBON DIOXIDE 30 mmol/L (22-30); CHLORIDE 99 mmol/L (98-107); CREATININE RESULT 0.62 mg/dL (0.52-1.25); GLUCOSE 100 mg/dL (75-110); POTASSIUM 3.6 mmol/L (3.6-5.0); SODIUM 139.8 mmol/L (137-145)
--- NOTE | 2017-02-14 08:40 | RADIOLOGY REPORT (SQ) ---
EXAM DESCRIPTION: CHEST PA/LAT COMPLETED DATE/TIME: 02/14/2017 8:00 am REASON FOR STUDY: followup CHF COMPARISON: 01/20/2017 EXAM PARAMETERS: NUMBER OF VIEWS: two views TECHNIQUE: Digital Frontal and Lateral radiographic views of the chest acquired. RADIATION DOSE: NA LIMITATIONS: none FINDINGS: LUNGS AND PLEURA: No opacities, masses or pneumothorax. There is some blunting of the cos tophrenic angles posteriorly which I cannot exclude as tiny pleural effusion. Linear density is iden tified in the right mid lung field most consistent with subsegmental atelectasis. MEDIASTINUM AND HILAR STRUCTURES: No masses or contour abnormalities. HEART AND VASCULAR STRUCTURES: Heart normal size. No evidence for failure. BONES: No acute findings. HARDWARE: None in the chest. OTHER: No other significant finding. IMPRESSION: There is some blunting of the costophrenic angles posteriorly which I cannot exclude as tiny pleural effusions. Linear density in the right mid lung field most consistent with subsegmental atelectasis. Other findings as noted above TECHNICAL DOCUMENTATION: JOB ID: [id number]- All Rights Reserved
[2017-02-14 09:44] VITALS: BP 125/71
[2017-02-14] MEDS ORDERED: FUROSEMIDE 40 MG TABLET PO SCH (10:00)
--- NOTE | 2017-02-14 10:11 | PDOC PROGRESS REPORT ---
Subjective Progress Note for:: 02/14/17 Subjective:: Shortness of breath has improved. Physical Exam Vital Signs: Temp Pulse Resp BP Pulse Ox 98.6 F 66 20 125/71 98 02/14/17 09:38 02/14/17 09:38 02/14/17 09:38 02/14/17 09:38 02/14/17 09:38 Intake & Output 02/13/17 02/14/17 02/15/17 06:59 06:59 06:59 Intake Total 540 1440 Output Total 2000 3200 Balance -1460 -1760 General appearance: PRESENT: no acute distress Eye exam: PRESENT: conjunctiva pink. ABSENT: scleral icterus Mouth exam: PRESENT: moist, tongue midline Neck exam: ABSENT: JVD Respiratory exam: PRESENT: clear to auscultation catarino. ABSENT: rales, rhonchi, wheezes Cardiovascular exam: PRESENT: RRR. ABSENT: diastolic murmur, rubs, systolic murmur Vascular exam: PRESENT: normal capillary refill GI/Abdominal exam: PRESENT: normal bowel sounds, soft. ABSENT: distended, guarding, mass, organolmegaly, rebound, tenderness Extremities exam: ABSENT: calf tenderness, clubbing, pedal edema Neurological exam: PRESENT: alert, awake, oriented to person, oriented to place , oriented to time, oriented to situation, CN II-XII grossly intact. ABSENT: motor sensory deficit Psychiatric exam: PRESENT: appropriate affect Skin exam: PRESENT: dry, intact, warm. ABSENT: cyanosis, rash Results Laboratory Results: 02/12/17 18:45 02/14/17 06:05 02/14/17 06:05 Sodium 139.8 Potassium 3.6 Chloride 99 Carbon Dioxide 30 Anion Gap 11 BUN 14 Creatinine 0.62 Est GFR ( Amer) > 60 Est GFR (Non-Af Amer) > 60 Glucose 100 Calcium 8.9 02/12/17 02/14/17 18:45 06:05 NT-Pro-B Natriuret Pep 1170 H 1060 H Impressions: Chest/Abdomen CTA 02/12/17 00:00 IMPRESSION: Multi lobar Patchy consolidation -atelectasis is present in the right and left lungs, basilar predominance. Small bilateral pleural effusions. No pulmonary arterial emboli identified. 2.3 cm heterogeneous nodule in the right thyroid. Chest X-Ray 02/14/17 08:00 IMPRESSION: There is some blunting of the costophrenic angles posteriorly which I cannot exclude as tiny pleural effusions. Linear density in the right mid lung field most consistent with subsegmental atelectasis. Other findings as noted above Assessment & Plan - Diagnosis (1) Hypoxia Is this a current diagnosis for this admission?: YesPlan: Patient. She is stable for discharge to home from a medical standpoint. Recommend that we give Lasix 40 mg p.o. daily along with Levaquin 750 mg p.o. daily 3 days. Patient was given prescriptions for these. The patient most likely has congestive heart failure diastolic dysfunction of the cause along with some mild pulmonary hypertension. She may have obstructive sleep apnea is contributing to both of these. She will follow-up with cardiology as an outpatient in the next 2 weeks and will need to have a sleep study done at that time. Will defer to cardiology as to timing given her recent surgery and whether or not she needs a stress test to be done. (2) Pneumonia Is this a current diagnosis for this admission?: Yes - Time Time Spent with patient: 15-24 minutes - Plan Summary Plan Summary: She will be discharged home today. Will follow up with cardiology in 2 weeks and will need a sleep study and a stress test scheduled in the near future
--- NOTE | 2017-02-14 18:27 | PDOC PROGRESS REPORT ---
Subjective Progress Note for:: 02/14/17 Subjective:: Patient was seen on morning rounds. She seems to have done very well. She has shortness of breath is significantly improved. Pedal edema is also improved. She is expecting discharge today. She has no significant complaints. Physical Exam Vital Signs: Temp Pulse Resp BP Pulse Ox 98.6 F 66 20 125/71 98 02/14/17 09:38 02/14/17 09:38 02/14/17 09:38 02/14/17 09:38 02/14/17 09:38 Intake & Output 02/13/17 02/14/17 02/15/17 06:59 06:59 06:59 Intake Total 540 1440 Output Total 2000 3200 Balance -1460 -1760 Exam: GENERAL: well-nourished and in no acute distress. Alert and oriented x3 HEAD: Atraumatic, normocephalic. EYES: Pupils equal round and reactive to light, extraocular movements intact, sclera anicteric, conjunctiva are normal. ENT: TMs normal, nares patent, oropharynx clear without exudates. Moist mucous membranes. No oral ulcerations or bleeding gums noted NECK: supple without lymphadenopathy. Trachea is central. No cervical or axillary lymphadenopathy noted. Carotids are 2+, JVD WNL LUNGS: Respiration seems nonlabored, no significant accessory muscle action noted. Few bibasilar crackles noted no wheezes rales or rhonchi noted. No significant dullness noted on percussion. CHEST: Palpation of the chest wall shows no significant chest wall tenderness. No other significant abnormalities noted. 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 ABDOMEN: Soft, no significant tenderness appreciated, normoactive bowel sounds. No guarding, no rebound. No rigidity noted . No masses appreciated. Postsurgical changes noted EXTREMITIES: Pedal pulses are 1-2+, no calf tenderness noted. No clubbing or cyanosis.trace to 1+ pedal edema noted NEUROLOGICAL: Focused neurological exam showed no significant neurologic deficit. Normal speech, no focal weakness appreciated. PSYCH: Normal mood, normal affect. Judgment and insight within normal limits. SKIN: No significant ecchymosis, rash, ulcerations or signs of pruritus noted. MUSCULOSKELETAL EXAM: No significant joint swelling noted. Results Laboratory Results: 02/12/17 18:45 02/14/17 06:05 02/14/17 06:05 Sodium 139.8 Potassium 3.6 Chloride 99 Carbon Dioxide 30 Anion Gap 11 BUN 14 Creatinine 0.62 Est GFR ( Amer) > 60 Est GFR (Non-Af Amer) > 60 Glucose 100 Calcium 8.9 02/12/17 02/14/17 18:45 06:05 NT-Pro-B Natriuret Pep 1170 H 1060 H Impressions: Chest/Abdomen CTA 02/12/17 00:00 IMPRESSION: Multi lobar Patchy consolidation -atelectasis is present in the right and left lungs, basilar predominance. Small bilateral pleural effusions. No pulmonary arterial emboli identified. 2.3 cm heterogeneous nodule in the right thyroid. Chest X-Ray 02/14/17 08:00 IMPRESSION: There is some blunting of the costophrenic angles posteriorly which I cannot exclude as tiny pleural effusions. Linear density in the right mid lung field most consistent with subsegmental atelectasis. Other findings as noted above Assessment & Plan - Diagnosis (1) CHF (congestive heart failure) Qualifiers: Congestive heart failure type: diastolic Congestive heart failure chronicity: acute Qualified Code(s): I50.31 - Acute diastolic (congestive ) heart failure Is this a current diagnosis for this admission?: Yes (2) Atelectasis of both lungs Is this a current diagnosis for this admission?: Yes (3) Hypoxia Is this a current diagnosis for this admission?: Yes (4) Sleep disorder breathing Is this a current diagnosis for this admission?: Yes (5) Pulmonary hypertension Is this a current diagnosis for this admission?: Yes - Notes Notes: CHF: Based on echocardiogram, this is secondary to diastolic dysfunction and volume overload. Atelectasis both lung bases: Most likely postsurgical. Patient will benefit from incentive spirometry. Hypoxemia: Related to atelectasis both lung bases and possibly CHF. Sleep disordered breathing: Patient has symptoms indicative of this. Patient advised to schedule a sleep study. Pulmonary hypertension: Currently stable will follow with a repeat echocardiogram [address] Postsurgical state: Improving. - Time Time with patient: 15-25 minutes Medications reviewed and adjusted accordingly: Yes - Patient placed on Lasix 40 mg daily yesterday
--- NOTE | 2017-03-27 16:49 | DISCHARGE SUMMARY E ---
Discharge Summary NAME: GÉNESIS PEOPLES : 1985 AGE: 31Y ADMITTED: 02/10/2017 DISCHARGED: 02/14/2017 HISTORY OF PRESENT ILLNESS AND HOSPITAL COURSE: This is a 31-year-old female admitted for exploratory laparotomy and left oophorectomy. The patient underwent uneventful laparotomy, removal of what appeared to be a paraovarian cyst, smooth and glistening. 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 Preoperative CA-125 was 87. Postoperatively, the patient did well except that she kept on developing a drop in her pO2 upon exertion, requiring oxygenation and ultimately hospitalist consultation intervention. Echocardiogram and spiral CT evaluation did not demonstrate any type of pulmonary embolism, but some elements of cardiac failure was noted. This responded well to diuresis. She was ultimately discharged and was to be followed as an outpatient doing well. FINAL IMPRESSION: 1. Ovarian cyst, serous cystadenoma. 2. Congestive heart failure. CONSULTATIONS: Internal medicine hospitalist program. PROCEDURE: Exploratory laparotomy, oophorectomy. DICTATING PHYSICIAN: SUSAN KEITA M.D. [id number] PHY#: [id number] ID: [id number] JOB#: [id number] ACCT: [id number] cc:SUSAN KEITA M.D. >
--- NOTE | 2017-04-09 16:17 | DISCHARGE SUMMARY E ---
Discharge Summary NAME: GÉNESIS PEOPLES : 1985 AGE: 31Y ADMITTED: 02/10/2017 DISCHARGED: 02/14/2017 ADDENDUM: Postoperatively, the patient did have a postoperative drop in her hemoglobin, requiring a 2 unit packed red cell transfusion. This was felt to be an intraperitoneal ooze and did respond well to the transfusion alone without an exploration. She did have, during this timeframe, the shortness of breath thought secondary to anemia, but ultimately had ended up developing the congestive heart failure of an acute diastolic nature that required the hospitalist intervention, diuresis, and ultimately improvement from there. FINAL IMPRESSION: 1. Ovarian serous cystadenoma. 2. Acute diastolic congestive heart failure. 3. Postoperative anemia. DICTATING PHYSICIAN: SUSAN KEITA M.D. [id number] PHY#: [id number] ID: [id number] JOB#: [id number] ACCT: [id number] cc:SUSAN KEITA M.D. >
== END 2017-02-14 10:00 | disposition home or self-care (01) | DRG 742 ==
LOC: INOR 05:10 → 2N 10:55
PROVIDERS: ADMIT Specialist; ATTEND Specialist
PROC: 0UT10ZZ Resection of Left Ovary, Open Approach (ICD-10-PCS; principal; 2017-02-10 07:15)
PROC: 30233N1 Transfusion of Nonautologous Red Blood Cells into Peripheral Vein, Percutaneous Approach (ICD-10-PCS; 2017-02-11)
DX: N83.292 Other ovarian cyst, left side (principal); I50.31 Acute diastolic (congestive) heart failure; J98.11 Atelectasis; D62 Acute posthemorrhagic anemia; R09.02 Hypoxemia; G47.9 Sleep disorder, unspecified; I27.2 Other secondary pulmonary hypertension; Z88.6 Allergy status to analgesic agent
CPT/HCPCS: 36415; 36430; 71020; 71275; 80048; 81001; 81025; 82803; 83880; 840; 85025; 85027; 86850; 86900; 86901; 86920; 87040; 88307; 93005; 93010; 93306; 94799; C9290; J0131; J0330; J0690; J1100; J1170; J1741; J1885; J1940; J1956; J2250; J2270; J2310; J2405; J2550; J2704; J2765; J3010; J3490; J7120; P9016; S0028

== ENCOUNTER 2017-02-25 22:07 | Emergency (ER) | payer OTHER ==
[2017-02-25] MEDS ORDERED: ASPIRIN 81 MG TABLET, CHEWABLE PO ONE (22:50)
--- NOTE | 2017-02-25 23:13 | RADIOLOGY REPORT (SQ) ---
EXAM DESCRIPTION: CHEST SINGLE VIEW COMPLETED DATE/TIME: 02/25/2017 11:01 pm REASON FOR STUDY: PAIN COMPARISON: 02/14/2017 EXAM PARAMETERS: NUMBER OF VIEWS: One view. TECHNIQUE: Single frontal radiographic view of the chest acquired. RADIATION DOSE: NA LIMITATIONS: None. FINDINGS: LUNGS AND PLEURA: No opacities, masses or pneumothorax. No pleural effusion. MEDIASTINUM AND HILAR STRUCTURES: No masses. Contour normal. HEART AND VASCULAR STRUCTURES: Heart normal in size. Normal vasculature. BONES: No acute findings. HARDWARE: None in the chest. OTHER: No other significant finding. IMPRESSION: NO ACUTE RADIOGRAPHIC FINDING IN THE CHEST. TECHNICAL DOCUMENTATION: JOB ID: [id number]
--- NOTE | 2017-02-26 01:31 | ER Document Report ---
ED General - General Chief Complaint: Chest Pain Stated Complaint: CHEST PAIN Time Seen by Provider: 02/26/17 01:24 Notes: Patient is a pleasant 31-year-old female who presents with complaint of pain in her chest. She says she has a sharp pain over the top of her right side of her chest that occurs with deep breathing. She had surgery 2 weeks ago. She had ovarian mass and left ovary removed. This was nonmalignant. Afterwards she did have some diastolic heart failure which has since resolved and she feels improved from that. She has had no recent fevers or infections. She has had no difficulty breathing since the heart failure resolved. She has had no chest pain until today. No other complaints at this time. No new leg pain or leg swelling. Patient says she has one area over her left thigh that is sore from where she received injection during her hospitalization. TRAVEL OUTSIDE OF THE [place] IN LAST 30 DAYS: No - Related Data Allergies/Adverse Reactions: codeine Allergy (Verified 02/06/17 10:34) Past Medical History - Social History Smoking Status: Never Smoker Frequency of alcohol use: None Drug Abuse: None Family History: Reviewed & Not Pertinent Patient has suicidal ideation: No Patient has homicidal ideation: No - Past Medical History Cardiac Medical History: Denies: Hx Atrial Fibrillation, Hx Congestive Heart Failure, Hx Coronary Artery Disease, Hx DVT, Hx Heart Attack, Hx Hypercholesterolemia, Hx Hypertension, Hx Peripheral Vascular Disease, Hx Heart Murmur Renal/ Medical History: Reports: Hx Ovarian Cysts. Denies: Hx End Stage Renal Disease, Hx Kidney Stones, Hx Peritoneal Dialysis, Hx Pelvic Inflammatory Disease Malignancy Medical History: Denies: Hx Breast Cancer, Hx Cervical Cancer, Hx Ovarian Cancer Psychiatric Medical History: Reports: Hx Depression - Recently diagnosed after the of her mother last month. Denies: Hx Bipolar Disorder, Hx Post Traumatic Stress Disorder, Hx Schizophrenia Past Surgical History: Reports: Other - Patient just admitted post ovarian cyst removal - Immunizations Hx Diphtheria, Pertussis, Tetanus Vaccination: Yes Review of Systems - Review of Systems Notes: My Normal Review Basic REVIEW OF SYSTEMS: CONSTITUTIONAL : Denies fever, chills, or sweats. Denies recent illness. EENT: Denies eye, ear, throat, or mouth pain or symptoms. Denies nasal or sinus congestion. CARDIOVASCULAR: Pleuritic chest pain. RESPIRATORY: Denies cough, cold, or chest congestion. Denies shortness of breath, difficulty breathing, or wheezing. GASTROINTESTINAL: Denies abdominal pain. Denies nausea, vomiting, or diarrhea. Denies constipation. Last BM: GENITOURINARY: Denies difficulty urinating, painful urination, burning, frequency, or blood in urine. MUSCULOSKELETAL: Denies neck or back pain or joint pain or swelling. SKIN: Denies rash or skin lesions. NEUROLOGICAL: Denies altered mental status or loss of consciousness. Denies headache. Denies weakness or paralysis or loss of use of either side. Denies problems with gait or speech. Denies sensory or motor loss. ALL OTHER SYSTEMS REVIEWED AND NEGATIVE. Physical Exam - Vital signs Vitals: Temp Pulse Resp BP Pulse Ox 98.3 F 68 16 123/62 100 02/25/17 22:47 02/25/17 22:47 02/25/17 22:47 02/25/17 22:47 02/25/17 22:47 - Notes Notes: General Appearance: Well nourished, alert, cooperative, no acute distress, no obvious discomfort. Well appearing. Vitals: reviewed, See vital signs table. Head: no swelling or tenderness to the head Eyes: PERRL, EOMI, Conjuctiva clear Mouth: No decreasd moisture Chest: No reproducible tenderness to palpation of chest wall. Neck: Supple, no neck tenderness, No thyromegaly Lungs: No wheezing, No rales, No rhonci, No accessory muscle use, good air exchange bilaterally. Heart: Normal rate, Regular rythm, No murmur, no rub Abdomen: Normal BS, soft, No rigidity, No abdominal tenderness, No guarding, no rebound, no abdominal masses, no organomegaly. Well-healing incision site on the anterior abdomen. No redness or erythema. Extremities: strength 5/5 in all extremities, good pulses in all extremities, no swelling or tenderness in the extremities, no edema. Skin: warm, dry, appropriate color, no rash Neuro: speech clear, oriented x 3, normal affect, responds appropriately to questions. Course - Vital Signs Vital signs: Temp Pulse Resp BP Pulse Ox 98.3 F 68 16 111/69 98 02/25/17 22:47 02/25/17 22:47 02/26/17 03:49 02/26/17 03:49 02/26/17 03:49 - Laboratory Result Diagrams: 02/26/17 02:00 02/26/17 02:00 Laboratory results interpreted by me: 02/26/17 02/26/17 02:00 02:00 RDW 14.6 H AST 40 H ALT 67 H - EKG Interpretation by Me Additional EKG results interpreted by me: 02/26/17 01:30 EKG is reviewed and interpreted by me. EKG shows normal sinus rhythm with rate of [address] segment elevation or depression. No ischemic T-wave inversions. CT interval, QRS duration, QTc intervals are within normal range. No old EKG available for comparison. - Transfer of Care Notes: 02/26/17 04:20 I suspect patient probably has pleurisy. I did obtain a CT injury of the chest because she did have pleuritic pain and just had recent surgery. CT was negative. She has no fluid on her lungs. No signs of CHF. Cardiac enzymes are negative. I feel she is safe to be discharged home. I encouraged her return to ER if she has worsening pain or difficulty breathing. Her CT scan did show a thyroid nodule. I explained to her that it is very important that she does follow-up with her doctor for a outpatient ultrasound to further investigate this nodule. Patient agrees with plan and will be discharged home. Dictation of this chart was performed using voice recognition software; therefore, there may be some unintended grammatical errors. Discharge - Discharge Clinical Impression: Thyroid nodule Chest pain Qualifiers: Chest pain type: unspecified Qualified Code(s): R07.9 - Chest pain, unspecified Condition: Good Disposition: HOME, SELF-CARE Additional Instructions: Please take ibuprofen or Naprosyn for your pain. Please take these with food. Please follow up with your doctor for reevaluation and also for an outpatient ultrasound of your thyroid. Please return to the ER immediately if you have difficulty breathing or feel that your symptoms are worsening. Referrals: SUSAN KEITA MD [Primary Care Provider] - Follow up in 3-5 days
[2017-02-26 02:14] LABS: ABSOLUTE BASOPHILS # (AUTO) 0.1 10^3/uL (0.0-0.2); ABSOLUTE EOSINOPHILS # (AUTO) 0.1 10^3/uL (0.0-0.6); ABSOLUTE LYMPHOCYTES (AUTO) 2.9 10^3/uL (0.5-4.7); ABSOLUTE MONOCYTES (AUTO) 0.7 10^3/uL (0.1-1.4); ABSOLUTE NEUT (AUTO) 5.8 10^3/uL (1.7-8.2); BASOPHILS % (AUTO) 0.8 % (0-2); EOSINOPHILS % (AUTO) 1.1 % (0-6); HEMATOCRIT 41.1 % (36.0-47.0); HEMOGLOBIN 13.4 g/dL (12.0-15.5); HGB HCT DIFFERENCE -0.9; LYMPHOCYTES % (AUTO) 30.4 % (13-45); MEAN CORPUSCULAR HEMOGLOBIN 28.4 pg (27.0-33.4); MEAN CORPUSCULAR HGB CONC 32.6 g/dL (32.0-36.0); MEAN CORPUSCULAR VOLUME 87 fl (80-97); MONOCYTES % (AUTO) 7.6 % (3-13); RED CELL DISTRIBUTION WIDTH 14.6 % (11.5-14.0); SEGMENTED NEUTROPHILS % (AUTO) 60.1 % (42-78); WHITE BLOOD COUNT 9.7 10^3/uL (4.0-10.5)
[2017-02-26 02:38] LABS: ALANINE AMINOTRANSFERASE 67 U/L (9-52); ALBUMIN 4.5 g/dL (3.5-5.0); ALKALINE PHOSPHATASE 86 U/L (38-126); ANION GAP 12 (5-19); ASPARTATE AMINO TRANSFERASE 40 U/L (14-36); BILIRUBIN,DIRECT 0.4 mg/dL (0.0-0.4); BILIRUBIN,TOTAL 0.9 mg/dL (0.2-1.3); BLOOD UREA NITROGEN 11 mg/dL (7-20); CALCIUM 9.7 mg/dL (8.4-10.2); CARBON DIOXIDE 27 mmol/L (22-30); CHLORIDE 101 mmol/L (98-107); CREATINE KINASE 39 U/L (30-135); CREATININE RESULT 0.63 mg/dL (0.52-1.25); GLUCOSE 101 mg/dL (75-110); SODIUM 139.5 mmol/L (137-145); TOTAL PROTEIN 7.7 g/dL (6.3-8.2)
[2017-02-26] MEDS ORDERED: ASPIRIN 81 MG TABLET, CHEWABLE ONE (02:41)
[2017-02-26] MEDS ORDERED: NORMAL SALINE 500 ML IV ONE (02:49)
[2017-02-26 02:50] LABS: CREATINE KINASE MB < 0.22 ng/mL (<4.55); TROPONIN I < 0.012 ng/mL
--- NOTE | 2017-02-26 04:03 | RADIOLOGY REPORT (SQ) ---
EXAM DESCRIPTION: CTA CHEST COMPLETED DATE/TIME: 02/26/2017 3:45 am REASON FOR STUDY: pleuritic chest pain post op COMPARISON: None. TECHNIQUE: CT scan of the chest performed using helical scanning technique with dynamic intravenous contrast injection. Images reviewed with lung, soft tissue and bone windows. Reconstructed coronal and sagittal MPR images reviewed. Additional 3 dimensional post-processing performed to develop Maximal Intensity Projection images (OR P). All images stored on PACS. All CT scanners at this facility use dose modulation, iterative reconstruction, and/or weight based d osing when appropriate to reduce radiation dose to as low as reasonably achievable (ALARA). [facility]: Dose Right [facility]: CareDose [facility]: Dose Right [facility]: Teradose 4D [facility]: ConnectSolutions CONTRAST TYPE AND DOSE: 100 mL Isovue 370- low osmolar. RENAL FUNCTION: None required. The patient is less than 50 years old. RADIATION DOSE: 24.85 mGy. LIMITATIONS: None. FINDINGS: LUNGS AND PLEURA: No masses, infiltrates, pneumothorax. No pleural effusions, calcificati ons. Small atelectasis or scar of the right lower lobe. Moderate lung volumes. AORTA AND GREAT VESSELS: No aneurysm or dissection. HEART: No pericardial effusion. PULMONARY ARTERIES: No emboli visualized in the main pulmonary arteries or the segmental branches. HILAR AND MEDIASTINAL STRUCTURES: No identified masses or abnormal nodes. HARDWARE: None in the chest. UPPER ABDOMEN: Moderate hepatic steatosis. Limited exam. THYROID AND OTHER SOFT TISSUES: 2.0 cm heterogeneous indeterminate lesion of the inferior right thyro id lobe. BONES: No acute or significant finding. 3D MIPS: Confirm above findings. OTHER: No other significant finding. IMPRESSION: 1. No acute cardiopulmonary findings. NO PULMONARY EMBOLI. 2. Indeterminate 2 cm rig ht thyroid lesion ; thyroid ultrasound recommended. TECHNICAL DOCUMENTATION: JOB ID: [id number] Quality ID # [id number]: Final reports with documentation of one or more dose reduction techniques (e.g., Au tomated exposure control, adjustment of the mA and/or kV according to patient size, use of iterative reconstruction technique) 2010 [employer]- All Rights Reserved
[2017-02-26 04:34] VITALS: BP 99/67
--- NOTE | 2017-02-26 09:12 | EKG REPORT ---
SEVERITY:- NORMAL ECG - SINUS RHYTHM : Confirmed by: Karis Ashby MD 26-Feb-2017 09:12:07
== END 2017-02-26 04:30 | disposition home or self-care (01) ==
LOC: ER 22:07
DX: E04.1 Nontoxic single thyroid nodule (principal); R07.9 Chest pain, unspecified
CPT/HCPCS: 93005; 99285; 36415; 82553; 82550; 85025; 80053; 84484; 71010; 71275; 93010; J7040

== ENCOUNTER → 2017-03-06 | Outpatient (CLI) | payer OTHER ==
--- NOTE | 2017-03-06 15:18 | WOMENS IMAGING REPORT ---
EXAM DESCRIPTION: U/S THYROID/ST TIS HEAD NECK COMPLETED DATE/TIME: 03/06/2017 2:07 pm REASON FOR STUDY: E04.1 E04.1 NONTOXIC SINGLE THYROID NODULE COMPARISON: CT angio chest 02/26/2017, 02/12/2017, 01/20/2017 TECHNIQUE: Dynamic and static marion-scale images acquired of the thyroid gland. Selected additional c olor/power Doppler images recorded. All images stored to PACS. LIMITATIONS: None. FINDINGS: RIGHT LOBE: Normal size, 5.4 x 2 x 2.4 cm. Homogeneous echotexture. At the right lower p ole thyroid, a 2.6 x 2.3 x 1.6 cm nodule is present with peripheral color flow. Fine-needle aspirate should be considered. LEFT LOBE: Normal size, 4.1 x 1.4 x 1.2 cm. Homogeneous echotexture. No cystic or solid masses. ISTHMUS: Normal size. Homogeneous echotexture. No cystic or solid masses. OTHER: No other significant finding. IMPRESSION: Right lower pole thyroid 2.6 cm nodule. Consider fine-needle aspirate TECHNICAL DOCUMENTATION: JOB ID: [id number] [employer]- All Rights Reserved
== END ==
LOC: WI 13:46
PROVIDERS: ATTEND Internal Medicine Cardiovascular Disease
DX: E04.1 Nontoxic single thyroid nodule (principal)
CPT/HCPCS: 76536

== ENCOUNTER → 2017-03-06 | Outpatient (CLI) | payer OTHER ==
[2017-03-06 09:12] LABS: HEMATOCRIT 41.5 % (36.0-47.0); HEMOGLOBIN 13.5 g/dL (12.0-15.5); MEAN CORPUSCULAR HEMOGLOBIN 28.4 pg (27.0-33.4); MEAN CORPUSCULAR HGB CONC 32.5 g/dL (32.0-36.0); MEAN CORPUSCULAR VOLUME 88 fl (80-97); RED BLOOD COUNT 4.74 10^6/uL (3.72-5.28); RED CELL DISTRIBUTION WIDTH 14.8 % (11.5-14.0); WHITE BLOOD COUNT 7.7 10^3/uL (4.0-10.5)
[2017-03-06 09:40] LABS: ALANINE AMINOTRANSFERASE 51 U/L (9-52); ALBUMIN 4.4 g/dL (3.5-5.0); ALKALINE PHOSPHATASE 73 U/L (38-126); ANION GAP 18 (5-19); ASPARTATE AMINO TRANSFERASE 35 U/L (14-36); BILIRUBIN,DIRECT 0.4 mg/dL (0.0-0.4); BILIRUBIN,TOTAL 0.8 mg/dL (0.2-1.3); BLOOD UREA NITROGEN 10 mg/dL (7-20); CALCIUM 9.3 mg/dL (8.4-10.2); CARBON DIOXIDE 19 mmol/L (22-30); CHLORIDE 103 mmol/L (98-107); CHOLESTEROL 177.76 mg/dL (0-200); Direct HDL 36 mg/dL (>40); GLUCOSE 82 mg/dL (75-110); POTASSIUM 4.6 mmol/L (3.6-5.0); SODIUM 140.4 mmol/L (137-145); TOTAL PROTEIN 7.3 g/dL (6.3-8.2); TRIGLYCERIDES 214 mg/dL (<150)
[2017-03-06 09:51] LABS: DIRECT LDL 107 mg/dL (<100)
[2017-03-06 09:57] LABS: FREE T3 4.31 pg/mL (2.77-5.27); VLDL CHOLESTEROL 42.8 mg/dL (10-31)
[2017-03-06 10:10] LABS: THYROID STIMULATING HORMONE 2.48 uIU/mL (0.47-4.68)
== END ==
LOC: OD 07:28
PROVIDERS: ATTEND Physician Assistant Medical
DX: R07.9 Chest pain, unspecified (principal); R06.02 Shortness of breath; E04.1 Nontoxic single thyroid nodule
CPT/HCPCS: 36415; 80053; 80061; 83880; 84439; 84443; 84481; 85027

== ENCOUNTER 2018-01-18 22:34 | Emergency (ER) | payer OTHER ==
--- NOTE | 2018-01-19 00:01 | ER Document Report ---
ED General - General Chief Complaint: Chest Pain Stated Complaint: CHEST PAIN Time Seen by Provider: 01/19/18 00:00 Notes: Patient is a 32-year-old female presents with complaint of chest pain. She says been ongoing for several days. Says it first felt like heartburn. She says that she intermittently has this heartburn type sensation and it does improve with Tums. She also has a sharp needlelike pain. Said nothing seems to make it better or worse except for it is worse when pushing over her chest. She denies any fevers. No recent infections. She does mention that she has history of congestive heart failure. She said that she developed congestive heart failure last year she had a large tumor in her abdomen that was pushing up against her diaphragm and pushing against her heart. After the tumor was removed in February of last year her symptoms resolved. She was still on Lasix up through August but has not been on it since it has been doing well. She denies any recent difficulty breathing. She does mention that she occasional have a cramp in her right calf muscle but she is usually able to work it out. She denies history of DVT or PE. She takes control but does not smoke. She denies any surgeries since the one that she had in February of last year. TRAVEL OUTSIDE OF THE [place] IN LAST 30 DAYS: No - Related Data Allergies/Adverse Reactions: codeine Allergy (Verified 02/26/17 04:24) Past Medical History - Social History Smoking Status: Never Smoker Frequency of alcohol use: None Drug Abuse: None Family History: Reviewed & Not Pertinent - Past Medical History Cardiac Medical History: Denies: Hx Atrial Fibrillation, Hx Congestive Heart Failure, Hx Coronary Artery Disease, Hx DVT, Hx Heart Attack, Hx Hypercholesterolemia, Hx Hypertension, Hx Peripheral Vascular Disease, Hx Heart Murmur Renal/ Medical History: Reports: Hx Ovarian Cysts. Denies: Hx End Stage Renal Disease, Hx Kidney Stones, Hx Peritoneal Dialysis, Hx Pelvic Inflammatory Disease Malignancy Medical History: Denies: Hx Breast Cancer, Hx Cervical Cancer, Hx Ovarian Cancer Psychiatric Medical History: Reports: Hx Depression - Recently diagnosed after the of her mother last month. Denies: Hx Bipolar Disorder, Hx Post Traumatic Stress Disorder, Hx Schizophrenia Past Surgical History: Reports: Hx Gynecologic Surgery - ovarian cysts, Other - Patient just admitted post ovarian cyst removal - Immunizations Hx Diphtheria, Pertussis, Tetanus Vaccination: Yes Review of Systems - Review of Systems Notes: My Normal Review Basic REVIEW OF SYSTEMS: CONSTITUTIONAL : Denies fever, chills, or sweats. Denies recent illness. CARDIOVASCULAR: Chest pain RESPIRATORY: Denies cough, cold, or chest congestion. Denies shortness of breath, difficulty breathing, or wheezing. GASTROINTESTINAL: Denies abdominal pain. Denies nausea, vomiting, or diarrhea. GENITOURINARY: Denies difficulty urinating, painful urination, burning, frequency, or blood in urine. MUSCULOSKELETAL: Denies neck or back pain or joint pain or swelling. SKIN: Denies rash or skin lesions. NEUROLOGICAL: Denies altered mental status or loss of consciousness. Denies headache. Denies weakness or paralysis or loss of use of either side. Denies problems with gait or speech. Denies sensory or motor loss. ALL OTHER SYSTEMS REVIEWED AND NEGATIVE. Physical Exam - Vital signs Vitals: Resp BP Pulse Ox 14 122/79 98 01/19/18 00:04 01/19/18 00:04 01/19/18 00:04 - Notes Notes: General Appearance: Well nourished, alert, cooperative, no acute distress, no obvious discomfort. Well-appearing. Vitals: reviewed, See vital signs table. Head: no swelling or tenderness to the head Eyes: PERRL, EOMI, Conjuctiva clear Mouth: No decreasd moisture Neck: No neck swelling. Lungs: No wheezing, No rales, No rhonci, No accessory muscle use, good air exchange bilaterally. Heart: Normal rate, Regular rythm, No murmur, no rub Abdomen: Normal BS, soft, No rigidity, No abdominal tenderness, No guarding, no rebound, no abdominal masses, no organomegaly Extremities: strength 5/5 in all extremities, good pulses in all extremities, no significant tenderness palpation of the right lower extremity., no edema. Skin: warm, dry, appropriate color, no rash Neuro: speech clear, oriented x 3, normal affect, responds appropriately to questions. Course - Re-evaluation Re-evalutation: 01/19/18 02:11 Patient does have a pain that sounds similar to reflux. She says the burning type pain going into her chest and is made better with her Tums. She is not on a Prilosec or Pepcid. I will place her on Pepcid and have her continue his Tums as needed. She said she has been taking Motrin to help with the pain but this of course seems to be worsening the pain. I informed her stop taking Motrin as it can worsen her gastritis or acid reflux. We will have her take Tylenol instead. She also has a very sharp intermittent pain is easily reproducible to palpation over her left anterior chest. Suspect this most likely is costochondritis. She does have a history of congestive heart failure which was actually result of a mass-effect from the large intra-abdominal tumor. Currently her abdomen is not distended soft nontender. Her BNP is negative. She does not have any rales on lung auscultation. She does not have any edema her legs. 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 I informed her that I do not see evidence of PE, congestive heart failure, or concerns for coronary disease. I feel that she is safe to be discharged home by encouraged to return to ER if she has worsening pain, fevers, difficulty breathing, or if she feels unwell. Patient agrees with plan will be discharged home. Dictation of this chart was performed using voice recognition software; therefore, there may be some unintended grammatical errors. - Vital Signs Vital signs: Temp Pulse Resp BP Pulse Ox 15 109/65 98 01/19/18 01:01 01/19/18 01:01 01/19/18 01:01 - Laboratory Result Diagrams: 01/19/18 00:40 01/19/18 00:40 - EKG Interpretation by Me Additional EKG results interpreted by me: 01/19/18 00:00 EKG is reviewed and interpreted by me. EKG shows normal sinus rhythm with a rate of [address] segment elevation or depression. No ischemic T-wave inversions. MT interval, QRS duration, QTc intervals are within normal range. Old EKG for comparison is from February 25, 2017. Discharge - Discharge Clinical Impression: Chest pain Qualifiers: Chest pain type: unspecified Qualified Code(s): R07.9 - Chest pain, unspecified Condition: Good Disposition: HOME, SELF-CARE Additional Instructions: CHEST WALL PAIN: Your chest pain may be coming from the chest wall. This is often caused by straining the muscles or joints in the chest during physical activity, direct trauma, coughing, or vigorous vomiting. Persons with arthritis are especially prone to this type of pain, due to inflammation of the cartilage joints near the breast bone. Occasionally, no cause can be found. Rest from strenuous physical activity. This kind of chest pain is usually made worse by movement of the chest. Depending on the symptoms, we may prescribe medicine for pain, muscle relaxation, and antiinflammatory effects. If the pain is new, and seems to be due to muscle strain, cold packs can help. Otherwise, apply gentle warmth to the painful area for 15 minutes every hour or two. You should call contact the doctor immediately if things change. Further evaluation is needed if you develop a fever or cough, if the nature of the pain changes, or if you become short of breath. ACID REFLUX DISEASE (GERD): Gastro-Esophageal Reflux Disease (GERD) is caused by stomach acid refluxing back up into the esophagus. The valve at the end of the esophagus may be weak. This is common in persons with a hiatal hernia. GERD symptoms can include indigestion, chest pain, heartburn, or food "sticking." Certain foods, alcohol, and aspirin can make GERD worse. Treatment depends on the severity. Usually, antacids or acid-suppressing medicines are used. When the esophagus is acutely inflamed, the physician will often prescribe membrane-protective drugs such as Carafate. Some patients benefit from medication such as Reglan that tightens the valve at the top of the stomach. Avoid those foods that bring on your symptoms. For many people, these foods are coffee, chocolate, onions, garlic, and carbonated drinks. Don't use alcohol, aspirin, caffeine, or tobacco. Don't eat late at night -- within 4 hours of bedtime. Don't over-eat. If necessary, elevate the head of your bed about 4 inches so that stomach acid will not roll up into your esophagus. Call the doctor if you develop severe chest pain, inability to swallow fluids, fever, or worsening symptoms. ANTACID THERAPY: You have been instructed to start antacid therapy. Antacids directly neutralize stomach acid. This is useful for acid irritation of the esophagus, gastritis, and ulcers. You should take two tablespoons of antacid one hour after each meal and three hours after each meal. If you are not eating, take the antacid every two hours. If you are using a concentrate (such as Maalox TC), use only one tablespoon. Many antacids affect the bowels. The most common problem is diarrhea. In this case, a pure aluminum hydroxide antacid (such as AlternaGel) can be substituted for some or all doses. If the problem is constipation, add a teaspoon of Milk of Magnesia to each dose. Call the doctor if you experience continued diarrhea or constipation, or if you develop lightheadedness, bloody stool or vomitus, severe abdominal pain, or black stool. FOLLOW-UP CARE: If you have been referred to a physician for follow-up care, call the physician s office for an appointment as you were instructed or within the next two days. If you experience worsening or a significant change in your symptoms, notify the physician immediately or return to the Emergency Department at any time for re-evaluation. Please joel your promotions specialist today to make a close follow up appointment. Please return to the ER immediately if you have worsening pain, fevers, difficulty breathing, leg swelling, or feel that you are worsening in any way. Plase avoid Ibuprofen. Please take tylenol for pain. Prescriptions: Famotidine [Pepcid 40 mg Tablet] 40 mg PO DAILY #20 tablet Forms: Return to Work
--- NOTE | 2018-01-19 00:11 | EKG REPORT ---
SEVERITY:- BORDERLINE ECG - SINUS RHYTHM PROBABLE LEFT ATRIAL ABNORMALITY : Confirmed by: Jose F Bangura MD 19-Jan-2018 00:11:06
[2018-01-19 00:51] LABS: ABSOLUTE BASOPHILS # (AUTO) 0.1 10^3/uL (0.0-0.2); ABSOLUTE EOSINOPHILS # (AUTO) 0.1 10^3/uL (0.0-0.6); ABSOLUTE LYMPHOCYTES (AUTO) 2.9 10^3/uL (0.5-4.7); ABSOLUTE MONOCYTES (AUTO) 0.5 10^3/uL (0.1-1.4); BASOPHILS % (AUTO) 0.8 % (0-2); EOSINOPHILS % (AUTO) 1.8 % (0-6); HEMATOCRIT 36.2 % (36.0-47.0); HEMOGLOBIN 12.3 g/dL (12.0-15.5); LYMPHOCYTES % (AUTO) 38.5 % (13-45); MEAN CORPUSCULAR HEMOGLOBIN 29.2 pg (27.0-33.4); MEAN CORPUSCULAR VOLUME 86 fl (80-97); MONOCYTES % (AUTO) 6.9 % (3-13); PLATELET COUNT 246 10^3/uL (150-450); RED BLOOD COUNT 4.21 10^6/uL (3.72-5.28); RED CELL DISTRIBUTION WIDTH 13.4 % (11.5-14.0); TOTAL CELLS COUNTED % (AUTO) 100 %; WHITE BLOOD COUNT 7.7 10^3/uL (4.0-10.5)
[2018-01-19 01:11] LABS: ANION GAP 19 (5-19); BLOOD UREA NITROGEN 16 mg/dL (7-20); CALCIUM 9.9 mg/dL (8.4-10.2); CARBON DIOXIDE 23 mmol/L (22-30); CHLORIDE 101 mmol/L (98-107); GLUCOSE 102 mg/dL (75-110); POTASSIUM 4.1 mmol/L (3.6-5.0); SODIUM 143.4 mmol/L (137-145)
[2018-01-19 01:19] VITALS: BP 109/65
--- NOTE | 2018-01-19 08:12 | RADIOLOGY REPORT (SQ) ---
EXAM DESCRIPTION: CHEST SINGLE VIEW COMPLETED DATE/TIME: 01/19/2018 1:25 am REASON FOR STUDY: chest pain COMPARISON: None. EXAM PARAMETERS: NUMBER OF VIEWS: One view. TECHNIQUE: Single frontal radiographic view of the chest acquired. RADIATION DOSE: NA LIMITATIONS: None. FINDINGS: LUNGS AND PLEURA: No opacities, masses or pneumothorax. No pleural effusion. MEDIASTINUM AND HILAR STRUCTURES: No masses. Contour normal. HEART AND VASCULAR STRUCTURES: Heart normal in size. Normal vasculature. BONES: No acute findings. HARDWARE: None in the chest. OTHER: No other significant finding. IMPRESSION: NO ACUTE RADIOGRAPHIC FINDING IN THE CHEST. TECHNICAL DOCUMENTATION: JOB ID: [id number] [employer]- All Rights Reserved Reading location - IP/workstation name: [email or web address]
== END 2018-01-19 02:36 | disposition home or self-care (01) ==
LOC: ER 22:34
DX: R07.9 Chest pain, unspecified (principal); R25.2 Cramp and spasm
CPT/HCPCS: 36415; 71045; 80048; 83880; 85025; 85379; 93005; 93010; 99285

== ENCOUNTER 2018-05-11 09:03 | Emergency (ER) | payer OTHER ==
--- NOTE | 2018-05-11 10:11 | ER Document Report ---
ED Medical Screen (RME) - General Chief Complaint: Numbness Stated Complaint: CHEST PAIN Time Seen by Provider: 05/11/18 10:09 Mode of Arrival: Ambulatory Information source: Patient Notes: This is a 32-year-old female with a history of benign ovarian mass removal, postsurgical CHF, elevated triglycerides who presents to the emergency room with chest discomfort, shortness of breath, left arm numbness. Patient states she woke up from sleep with tingling in the left arm. She states she was sleeping on her right side. She states that she took aspirin and it seemed to get better and when she went to work she experienced numbness to the whole left arm followed by some chest pain and shortness of breath. In the emergency room , her lungs are clear and her heart is regular. Her EKG looks good. She has good radial pulses in the upper extremities. The extremities are warm and there is no swelling. She does not appear in any distress. TRAVEL OUTSIDE OF THE [place] IN LAST 30 DAYS: No - Related Data Allergies/Adverse Reactions: codeine Allergy (Verified 05/11/18 10:05) Past Medical History - Social History Chew tobacco use (# tins/day): No Frequency of alcohol use: None Drug Abuse: None - Past Medical History Cardiac Medical History: Reports: Hx Congestive Heart Failure Denies: Hx Atrial Fibrillation, Hx Coronary Artery Disease, Hx DVT, Hx Heart Attack, Hx Hypercholesterolemia, Hx Hypertension, Hx Peripheral Vascular Disease , Hx Heart Murmur Renal/ Medical History: Reports: Hx Ovarian Cysts. Denies: Hx End Stage Renal Disease, Hx Kidney Stones, Hx Peritoneal Dialysis, Hx Pelvic Inflammatory Disease Malignancy Medical History: Denies: Hx Breast Cancer, Hx Cervical Cancer, Hx Ovarian Cancer Psychiatric Medical History: Reports: Hx Depression - Recently diagnosed after the of her mother last month. Denies: Hx Bipolar Disorder, Hx Post Traumatic Stress Disorder, Hx Schizophrenia Past Surgical History: Reports: Hx Gynecologic Surgery - ovarian cysts, Other - Patient just admitted post ovarian cyst removal - Immunizations Hx Diphtheria, Pertussis, Tetanus Vaccination: Yes Physical Exam - Vital signs Vitals: Temp Pulse Resp BP Pulse Ox 97.9 F 63 16 136/85 H 95 05/11/18 09:11 05/11/18 09:11 05/11/18 09:11 05/11/18 09:11 05/11/18 09:11 Course - Vital Signs Vital signs: Temp Pulse Resp BP Pulse Ox 97.9 F 63 16 136/85 H 95 05/11/18 09:11 05/11/18 09:11 05/11/18 09:11 05/11/18 09:11 05/11/18 09:11
--- NOTE | 2018-05-11 10:26 | EKG REPORT ---
SEVERITY:- NORMAL ECG - SINUS RHYTHM : Confirmed by: Danyelle Rice 11-May-2018 10:25:44
--- NOTE | 2018-05-11 10:47 | RADIOLOGY REPORT (SQ) ---
EXAM DESCRIPTION: CHEST SINGLE VIEW COMPLETED DATE/TIME: 05/11/2018 10:36 am REASON FOR STUDY: chest pain COMPARISON: CT angio chest 02/26/2017 AP chest 02/25/2017, 02/14/2017 EXAM PARAMETERS: NUMBER OF VIEWS: One view. TECHNIQUE: Single frontal radiographic view of the chest acquired. RADIATION DOSE: NA LIMITATIONS: None. FINDINGS: LUNGS AND PLEURA: No opacities, masses or pneumothorax. No pleural effusion. MEDIASTINUM AND HILAR STRUCTURES: No masses. Contour normal. HEART AND VASCULAR STRUCTURES: Heart normal in size. Normal vasculature. BONES: No acute findings. HARDWARE: None in the chest. OTHER: No other significant finding. IMPRESSION: NO ACUTE RADIOGRAPHIC FINDING IN THE CHEST. TECHNICAL DOCUMENTATION: JOB ID: [id number] [employer]- All Rights Reserved Reading location - IP/workstation name: [email or web address]
[2018-05-11 11:01] LABS: ALANINE AMINOTRANSFERASE 83 U/L (9-52); ALBUMIN 4.9 g/dL (3.5-5.0); ALKALINE PHOSPHATASE 78 U/L (38-126); ANION GAP 18 (5-19); ASPARTATE AMINO TRANSFERASE 67 U/L (14-36); BILIRUBIN,DIRECT 0.4 mg/dL (0.0-0.4); BILIRUBIN,TOTAL 0.6 mg/dL (0.2-1.3); BLOOD UREA NITROGEN 12 mg/dL (7-20); CALCIUM 9.8 mg/dL (8.4-10.2); CARBON DIOXIDE 23 mmol/L (22-30); CHLORIDE 103 mmol/L (98-107); CREATINE KINASE 56 U/L (30-135); GLUCOSE 96 mg/dL (75-110); POTASSIUM 4.1 mmol/L (3.6-5.0); TOTAL PROTEIN 8.2 g/dL (6.3-8.2)
[2018-05-11 11:15] LABS: CREATINE KINASE MB < 0.22 ng/mL (<4.55); TROPONIN I < 0.012 ng/mL
[2018-05-11 11:49] LABS: ABSOLUTE EOSINOPHILS # (AUTO) 0.1 10^3/uL (0.0-0.6); ABSOLUTE LYMPHOCYTES (AUTO) 2.6 10^3/uL (0.5-4.7); ABSOLUTE MONOCYTES (AUTO) 0.4 10^3/uL (0.1-1.4); ABSOLUTE NEUT (AUTO) 4.6 10^3/uL (1.7-8.2); BASOPHILS % (AUTO) 0.6 % (0-2); HEMATOCRIT 37.9 % (36.0-47.0); HEMOGLOBIN 12.8 g/dL (12.0-15.5); LYMPHOCYTES % (AUTO) 33.4 % (13-45); MEAN CORPUSCULAR HEMOGLOBIN 29.1 pg (27.0-33.4); MEAN CORPUSCULAR HGB CONC 33.8 g/dL (32.0-36.0); MEAN CORPUSCULAR VOLUME 86 fl (80-97); PLATELET COUNT 243 10^3/uL (150-450); RED CELL DISTRIBUTION WIDTH 13.9 % (11.5-14.0); TOTAL CELLS COUNTED % (AUTO) 100 %; WHITE BLOOD COUNT 7.7 10^3/uL (4.0-10.5)
--- NOTE | 2018-05-11 15:02 | RADIOLOGY REPORT (SQ) ---
EXAM DESCRIPTION: MRI HEAD WITHOUT COMPLETED DATE/TIME: 05/11/2018 2:38 pm REASON FOR STUDY: left arm numbness COMPARISON: None. TECHNIQUE: Multiplanar imaging includes non-contrasted T1, T2, FLAIR, and diffusion with ADC map seq uences. Images stored on PACS. LIMITATIONS: None. FINDINGS: ANATOMY: No anomalies. Normal vascular flow voids. Pituitary fossa normal. CSF SPACES: Normal in size and contour. No hemorrhage. CEREBRUM: Sulci and gyri normal in size and contour. Normal white matter signal on FLAIR imaging. No evidence of hemorrhage, mass, or extraaxial fluid collection. POSTERIOR FOSSA: No signal alteration. No hemorrhage. No edema, masses or mass effect. Internal ashley tory canals, cerebello-pontine angles, mastoids normal. DIFFUSION IMAGING: Negative for acute or sub-acute infarction. ORBITS: No masses. Globes normal. PARANASAL SINUSES: No fluid levels. Mucosa normal. OTHER: No other significant finding. IMPRESSION: NORMAL MRI OF THE BRAIN WITHOUT INTRAVENOUS GADOLINIUM CONTRAST. EVIDENCE OF ACUTE STROKE: NO. TECHNICAL DOCUMENTATION: JOB ID: [id number] [employer]- All Rights Reserved Reading location - IP/workstation name: [email or web address]
--- NOTE | 2018-05-11 16:16 | RADIOLOGY REPORT (SQ) ---
EXAM DESCRIPTION: VENOUS UNILATERAL UPPER COMPLETED DATE/TIME: 05/11/2018 4:08 pm REASON FOR STUDY: left upper extremity COMPARISON: None. TECHNIQUE: Dynamic and static marion scale and color images acquired of the left arm venous system. Se lected spectral images acquired with additional compression and augmentation maneuvers. The contralat eral subclavian vein and internal jugular vein were also imaged. Images stored on PACS. LIMITATIONS: None. FINDINGS: INTERNAL JUGULAR VEIN: Normal phasicity, compression, augmentation. No visualized echogeni c material on marion scale. No defects on color images. Comparison opposite side normal. SUBCLAVIAN VEIN: Normal compression, augmentation. No visualized echogenic material on marion scale. No defects on color images. AXILLARY VEIN: Normal compression, augmentation. No visualized echogenic material on marion scale. No d efects on color images. BRACHIAL VEIN: Normal compression, augmentation. No visualized echogenic material on marion scale. No d efects on color images. BASILIC VEIN: Normal compression, augmentation. No visualized echogenic material on marion scale. No de fects on color images. CEPHALIC VEIN: Normal compression, augmentation. No visualized echogenic material on marion scale. No d efects on color images. OTHER: No other significant finding. CONTRALATERAL SUBCLAVIAN VEIN AND INTERNAL JUGULAR VEIN: Normal phasicity, compression and augmentation. No visualized echogenic material on marion scale. No de fects on color images. IMPRESSION: NO EVIDENCE DVT OR SVT LEFT ARM. TECHNICAL DOCUMENTATION: JOB ID: [id number] [employer]- All Rights Reserved Reading location - IP/workstation name: [email or web address]
--- NOTE | 2018-05-11 17:38 | ER Document Report ---
ED General - General Chief Complaint: Numbness Stated Complaint: CHEST PAIN Time Seen by Provider: 05/11/18 10:09 Mode of Arrival: Ambulatory TRAVEL OUTSIDE OF THE [place] IN LAST 30 DAYS: No - HPI Patient complains to provider of: arm numbness Onset: Yesterday - 32-year-old female with past medical history of depression as well as heart failure in the past which is now since resolved that presents for evaluation of an episode of left-sided arm numbness which began last night with some associated low-grade headache. She denies any fevers or chills cough , she did develop chest pain today while at home which has now since resolved the numbness in her arm also resolved and is primarily in a circular area just distal to her elbow, she has never had anything like this in the past and nothing seems to make it better or worse. She denies any recent fevers chills weakness rashes diarrhea constipation emesis or dysuria. - Related Data Allergies/Adverse Reactions: codeine Allergy (Verified 05/11/18 10:05) Past Medical History - General Information source: Patient - Social History Smoking Status: Never Smoker Chew tobacco use (# tins/day): No Frequency of alcohol use: None Drug Abuse: None Family History: Reviewed & Not Pertinent Patient has suicidal ideation: No Patient has homicidal ideation: No - Past Medical History Cardiac Medical History: Reports: Hx Congestive Heart Failure Denies: Hx Atrial Fibrillation, Hx Coronary Artery Disease, Hx DVT, Hx Heart Attack, Hx Hypercholesterolemia, Hx Hypertension, Hx Peripheral Vascular Disease , Hx Heart Murmur Renal/ Medical History: Reports: Hx Ovarian Cysts. Denies: Hx End Stage Renal Disease, Hx Kidney Stones, Hx Peritoneal Dialysis, Hx Pelvic Inflammatory Disease Malignancy Medical History: Denies: Hx Breast Cancer, Hx Cervical Cancer, Hx Ovarian Cancer Psychiatric Medical History: Reports: Hx Depression - Recently diagnosed after the of her mother last month. Denies: Hx Bipolar Disorder, Hx Post Traumatic Stress Disorder, Hx Schizophrenia Past Surgical History: Reports: Hx Gynecologic Surgery - ovarian cysts, Other - Patient just admitted post ovarian cyst removal - Immunizations Hx Diphtheria, Pertussis, Tetanus Vaccination: Yes Review of Systems - Review of Systems -: Yes All other systems reviewed and negative Physical Exam - Vital signs Vitals: Temp Pulse Resp BP Pulse Ox 97.9 F 63 16 136/85 H 95 05/11/18 09:11 05/11/18 09:11 05/11/18 09:11 05/11/18 09:11 05/11/18 09:11 - General General appearance: Appears well In distress: None - HEENT Head: Normocephalic Eyes: Normal Conjunctiva: Normal Cornea: Normal Pupils: PERRL Ears: Normal External canal: Normal Tympanic membrane: Normal Nasal: Normal Mouth/Lips: Normal Mucous membranes: Normal Neck: Normal - Respiratory Respiratory status: No respiratory distress Chest status: Nontender Breath sounds: Normal Chest palpation: Normal - Cardiovascular Rhythm: Regular Heart sounds: Normal auscultation Murmur: No - Abdominal Inspection: Normal Distension: No distension Tenderness: Nontender - Back Back: Normal - Extremities General upper extremity: Normal inspection General lower extremity: Normal inspection Shoulder: Normal Arm: Normal Elbow: Normal Forearm: Normal Wrist: Normal Hand: Normal Hip: Normal Thigh: Normal Knee: Normal Calf: Normal Ankle: Normal - Neurological Neuro grossly intact: Yes Cognition: Normal Orientation: AAOx4 Hien Coma Scale Eye Opening: Spontaneous Hien Coma Scale Verbal: Oriented [place] Coma Scale Motor: Obeys Commands [place] Coma Scale Total: 15 Speech: Normal Cranial nerves: Normal Cerebellar coordination: Normal Motor strength normal: LUE, RUE, LLE, RLE Additional motor exam 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 She notes that today the chest pain started this morning. She denies any other symptoms. 3 triage this patient underwent an MRI as well as she has had a negative troponin and EKG which is reassuring at this time, after examining the patient she is neurologically intact. Her symptoms have essentially resolved her primary concern was related to a cardiac etiology as she has been told previously she has heart failure but is since resolved. Given that she has had 2 negative troponins unremarkable EKG normal MRI and a normal ultrasound believe that she is likely safe for discharge. Her heart score is 1. She is able tolerate p.o. ambulatory neurologically intact and otherwise well- appearing. Patient encouraged follow-up with her primary physician regarding further management of her symptoms, do not believe this is more serious underlying condition such as CVA, ND, pulmonary embolism, or arterial injury. - Vital Signs Vital signs: Temp Pulse Resp BP Pulse Ox 97.9 F 63 18 116/92 H 99 05/11/18 09:11 05/11/18 09:11 05/11/18 15:46 05/11/18 15:46 05/11/18 15:46 - Laboratory Result Diagrams: 05/11/18 10:25 05/11/18 10:25 Laboratory results interpreted by me: 05/11/18 10:25 AST 67 H ALT 83 H Discharge - Discharge Clinical Impression: Numbness and tingling in left arm Chest pain Qualifiers: Chest pain type: unspecified Qualified Code(s): R07.9 - Chest pain, unspecified Condition: Good Disposition: HOME, SELF-CARE Instructions: Chest Pain of Unclear Cause ([facility]), Numbness or Paresthesia ([facility]) Additional Instructions: YOu were seen today in the emergency department for your chest pain and arm tingling you had an MRI as well as an ultrasound and 2 troponins with an EKG. There is no obvious cause identified for your pain. It does not appear that there was no obvious cause identified for the pain in your chest. Call your doctor tomorrow for follow-up related to today's visit. Return for any worsening chest pain shortness of breath fevers chills numbness or weakness. Forms: Return to Work
[2018-05-11 18:09] VITALS: BP 127/78
== END 2018-05-11 18:18 | disposition home or self-care (01) ==
LOC: ER 09:03
DX: R20.0 Anesthesia of skin (principal); R20.2 Paresthesia of skin; R07.9 Chest pain, unspecified; R51 Headache; Z86.79 Personal history of other diseases of the circulatory system; Z88.5 Allergy status to narcotic agent
CPT/HCPCS: 36415; 70551; 71045; 80053; 82550; 82553; 84484; 85025; 93005; 93010; 93971; 99285

== ENCOUNTER 2018-07-23 22:35 | Emergency (ER) | payer OTHER ==
--- NOTE | 2018-07-24 01:01 | ER Document Report ---
ED General - General Chief Complaint: Chest Pain Stated Complaint: SHORTNESS OF BREATH/LEFT ARM TINGLE Time Seen by Provider: 07/24/18 00:58 Notes: Patient is a 32-year-old female who presents with complaint of intermittent chest pain and tingling into her arms and hands. She says that she gets this frequently. She says that she was once diagnosed with CHF however that resolved. That occurred after her surgery. She is followed by Dr. Rice for a well and he had placed her on Prozac as he felt the low this was anxiety driven. She says she did very well on the Prozac but stopped taking it and she feels that her symptoms occur more often now. She also mentions that her doctor a few weeks ago had checked her cholesterol and triglyceride levels and they were elevated. I told her to change her diet. She works at [employer] and says that she still eats a lot of fatty foods. She is requesting to have those levels rechecked. She has no further concerns at this time. She says her symptoms have actually improved while waiting to come back an ER room. TRAVEL OUTSIDE OF THE [place] IN LAST 30 DAYS: No - Related Data Allergies/Adverse Reactions: codeine Allergy (Verified 05/11/18 10:05) Past Medical History - Social History Smoking Status: Never Smoker Frequency of alcohol use: None Drug Abuse: None Family History: Reviewed & Not Pertinent - Past Medical History Cardiac Medical History: Reports: Hx Congestive Heart Failure Denies: Hx Atrial Fibrillation, Hx Coronary Artery Disease, Hx DVT, Hx Heart Attack, Hx Hypercholesterolemia, Hx Hypertension, Hx Peripheral Vascular Disease , Hx Heart Murmur Renal/ Medical History: Reports: Hx Ovarian Cysts. Denies: Hx End Stage Renal Disease, Hx Kidney Stones, Hx Peritoneal Dialysis, Hx Pelvic Inflammatory Disease Malignancy Medical History: Denies: Hx Breast Cancer, Hx Cervical Cancer, Hx Ovarian Cancer Psychiatric Medical History: Reports: Hx Depression - Recently diagnosed after the of her mother last month. Denies: Hx Bipolar Disorder, Hx Post Traumatic Stress Disorder, Hx Schizophrenia Past Surgical History: Reports: Hx Gynecologic Surgery - ovarian cysts, Other - Patient just admitted post ovarian cyst removal - Immunizations Hx Diphtheria, Pertussis, Tetanus Vaccination: Yes Review of Systems - Review of Systems Notes: My Normal Review Basic REVIEW OF SYSTEMS: CONSTITUTIONAL : Denies fever, chills, or sweats. Denies recent illness. EENT: Denies eye, ear, throat, or mouth pain or symptoms. Denies nasal or sinus congestion. CARDIOVASCULAR: Intermittent chest pain. RESPIRATORY: Denies cough, cold, or chest congestion. Denies shortness of breath, difficulty breathing, or wheezing. GASTROINTESTINAL: Denies abdominal pain. Denies nausea, vomiting, or diarrhea. MUSCULOSKELETAL: Denies neck or back pain or joint pain or swelling. SKIN: Denies rash or skin lesions. NEUROLOGICAL: Denies altered mental status or loss of consciousness. Denies headache. Denies weakness or paralysis or loss of use of either side. Denies problems with gait or speech. ALL OTHER SYSTEMS REVIEWED AND NEGATIVE. Physical Exam - Vital signs Vitals: Temp Pulse Resp BP Pulse Ox 98.3 F 77 18 131/76 H 97 07/23/18 22:44 07/23/18 22:44 07/23/18 22:44 07/23/18 22:44 07/23/18 22:44 - Notes Notes: General Appearance: Well nourished, alert, cooperative, no acute distress, no obvious discomfort. Well-appearing. Vitals: reviewed, See vital signs table. Head: no swelling or tenderness to the head Eyes: PERRL, EOMI, Conjuctiva clear Mouth: No decreasd moisture Lungs: No wheezing, No rales, No rhonci, No accessory muscle use, good air exchange bilaterally. Heart: Normal rate, Regular rythm, No murmur, no rub Abdomen: Normal BS, soft, No rigidity, No abdominal tenderness, No guarding, no rebound, no abdominal masses, no organomegaly Extremities: strength 5/5 in all extremities, good pulses in all extremities, no swelling or tenderness in the extremities, no edema. Skin: warm, dry, appropriate color, no rash Neuro: speech clear, oriented x 3, normal affect, responds appropriately to questions. Course - Re-evaluation Re-evalutation: 07/24/18 09:06 He looks well. His symptoms resolved. Triglyceride levels are elevated I informed her that she really needs to change her diet and continue exercise with these will continue to be elevated and could lead to heart disease in the future. Chronic enzymes and EKG are negative. Her symptoms are consistent with when she has had in the past which seem to be stress related. She said the Prozac worked well for in the past and we will place her back on this and encouraged her to follow-up closely with her primary care doctor for reevaluation. Patient to return to ER if she has recurrence of symptoms or if she feels unwell. Patient agrees with plan will be discharged home. Dictation of this chart was performed using voice recognition software; therefore, there may be some unintended grammatical errors. - Vital Signs Vital signs: Temp Pulse Resp BP Pulse Ox 98.6 F 71 18 125/72 97 07/24/18 05:18 07/24/18 05:18 07/24/18 05:18 07/24/18 05:18 07/24/18 05:18 - Laboratory Result Diagrams: 07/24/18 01:20 07/24/18 01:20 Laboratory results interpreted by me: 07/24/18 01:20 Creatinine 0.49 L Calcium 10.3 H Triglycerides 341 H Cholesterol 201.95 H LDL Cholesterol Direct 114 H VLDL Cholesterol 68.2 H - EKG Interpretation by Me Additional EKG results interpreted by me: 07/24/18 01:00 EKG is reviewed and interpreted by me. EKG shows sinus rhythm with rate of [address] segment elevation or depression. No ischemic T wave inversions. [place] interval, QRS duration, QTc intervals are within normal range. No old EKG available for comparison. Discharge - Discharge Clinical Impression: Stress Chest pain Qualifiers: Chest pain type: unspecified Qualified Code(s): R07.9 - Chest pain, unspecified Hyperlipemia Qualifiers: Hyperlipidemia type: unspecified Qualified Code(s): E78.5 - Hyperlipidemia, unspecified Condition: Good Disposition: HOME, SELF-CARE Additional Instructions: Please avoid fatty foods and fried foods. Please take the Prozac as prescribed. Please follow up closely with your primary care physician for reevaluation and recheck of your lipid panel. Please return to the ER if you have worsening pain or feel unwell. Prescriptions: Fluoxetine HCl [Prozac] 10 mg PO DAILY #30 capsule Forms: Return to Work
[2018-07-24 01:33] LABS: ABSOLUTE EOSINOPHILS # (AUTO) 0.2 10^3/uL (0.0-0.6); ABSOLUTE LYMPHOCYTES (AUTO) 2.4 10^3/uL (0.5-4.7); ABSOLUTE MONOCYTES (AUTO) 0.5 10^3/uL (0.1-1.4); ABSOLUTE NEUT (AUTO) 3.4 10^3/uL (1.7-8.2); BASOPHILS % (AUTO) 0.7 % (0-2); EOSINOPHILS % (AUTO) 3.3 % (0-6); HEMATOCRIT 36.8 % (36.0-47.0); HEMOGLOBIN 12.4 g/dL (12.0-15.5); LYMPHOCYTES % (AUTO) 36.6 % (13-45); MEAN CORPUSCULAR HEMOGLOBIN 29.1 pg (27.0-33.4); MEAN CORPUSCULAR HGB CONC 33.7 g/dL (32.0-36.0); MEAN CORPUSCULAR VOLUME 87 fl (80-97); MONOCYTES % (AUTO) 7.7 % (3-13); PLATELET COUNT 251 10^3/uL (150-450); RED BLOOD COUNT 4.25 10^6/uL (3.72-5.28); RED CELL DISTRIBUTION WIDTH 13.5 % (11.5-14.0); SEGMENTED NEUTROPHILS % (AUTO) 51.7 % (42-78); TOTAL CELLS COUNTED % (AUTO) 100 %; WHITE BLOOD COUNT 6.6 10^3/uL (4.0-10.5)
[2018-07-24 01:44] LABS: ANION GAP 17 (5-19); BLOOD UREA NITROGEN 16 mg/dL (7-20); CALCIUM 10.3 mg/dL (8.4-10.2); CARBON DIOXIDE 24 mmol/L (22-30); CHLORIDE 103 mmol/L (98-107); CHOLESTEROL 201.95 mg/dL (0-200); GLUCOSE 98 mg/dL (75-110); POTASSIUM 4.5 mmol/L (3.6-5.0); SODIUM 143.9 mmol/L (137-145); TRIGLYCERIDES 341 mg/dL (<150)
--- NOTE | 2018-07-24 01:46 | RADIOLOGY REPORT (SQ) ---
EXAM DESCRIPTION: XR CHEST 1 VIEW COMPLETED DATE/TME: 07/24/2018 01:08 CLINICAL HISTORY: 32 years, Female, chest pain COMPARISON: 05/11/2018 chest x-ray report NUMBER OF VIEWS: 1 TECHNIQUE: Frontal view the chest LIMITATIONS: None. FINDINGS: The heart size is normal. Lungs are clear. No pneumothorax IMPRESSION: Negative chest 2010 [facility] [employer]- All Rights Reserved
[2018-07-24 01:55] LABS: DIRECT LDL 114 mg/dL (<100); VLDL CHOLESTEROL 68.2 mg/dL (10-31)
[2018-07-24 05:20] VITALS: BP 125/72
--- NOTE | 2018-07-24 12:41 | EKG REPORT ---
SEVERITY:- NORMAL ECG - SINUS RHYTHM : Confirmed by: Karis Ashby MD 24-Jul-2018 12:40:08
== END 2018-07-24 05:20 | disposition home or self-care (01) ==
LOC: ER 22:35
DX: F43.9 Reaction to severe stress, unspecified (principal); R07.9 Chest pain, unspecified; E78.5 Hyperlipidemia, unspecified; R06.02 Shortness of breath; R20.2 Paresthesia of skin; Z88.6 Allergy status to analgesic agent
CPT/HCPCS: 36415; 71045; 80048; 80061; 84484; 85025; 93005; 93010; 99285

== ENCOUNTER 2018-08-31 23:57 | Emergency (ER) | payer OTHER ==
[2018-09-01] MEDS ORDERED: ASPIRIN 81 MG TABLET, CHEWABLE PO ONE (00:24)
[2018-09-01 01:13] LABS: ABSOLUTE BASOPHILS # (AUTO) 0.1 10^3/uL (0.0-0.2); ABSOLUTE EOSINOPHILS # (AUTO) 0.1 10^3/uL (0.0-0.6); ABSOLUTE LYMPHOCYTES (AUTO) 3.2 10^3/uL (0.5-4.7); ABSOLUTE MONOCYTES (AUTO) 0.6 10^3/uL (0.1-1.4); ABSOLUTE NEUT (AUTO) 5.8 10^3/uL (1.7-8.2); EOSINOPHILS % (AUTO) 1.1 % (0-6); HEMATOCRIT 38.5 % (36.0-47.0); HEMOGLOBIN 13.2 g/dL (12.0-15.5); LYMPHOCYTES % (AUTO) 32.4 % (13-45); MEAN CORPUSCULAR HEMOGLOBIN 29.2 pg (27.0-33.4); MEAN CORPUSCULAR HGB CONC 34.1 g/dL (32.0-36.0); MEAN CORPUSCULAR VOLUME 86 fl (80-97); PLATELET COUNT 297 10^3/uL (150-450); RED CELL DISTRIBUTION WIDTH 13.7 % (11.5-14.0); SEGMENTED NEUTROPHILS % (AUTO) 59.5 % (42-78); TOTAL CELLS COUNTED % (AUTO) 100 %; WHITE BLOOD COUNT 9.7 10^3/uL (4.0-10.5)
--- NOTE | 2018-09-01 01:16 | ER Document Report ---
ED General - General Chief Complaint: Chest Pressure Stated Complaint: CHEST PAIN Time Seen by Provider: 09/01/18 01:06 Mode of Arrival: Ambulatory Information source: Patient Notes: 33-year-old female with congestive heart failure, hyperlipidemia, obesity presents with complaint of chest tightness that awoke her from sleep this morning and has been present all day. Patient also complaining of associated shortness of breath and nausea without vomiting. Patient has been seen here multiple times for similar symptoms. She is currently under cardiology care by Dr. Roland. Patient has undergone an echocardiogram and has a stress echo scheduled for September 02. Patient denies any recent illness, fever , chills, coughing, lower extremity edema. She states that she did experience some left upper quadrant abdominal pain that has resolved but reports a history of constipation. She states her last bowel movement was 2 days prior to arrival. Patient states that she was recently placed on a statin. She denies sick contacts, tobacco use, alcohol use. Surgical history includes oophorectomy. She is currently on control. is present in the room. TRAVEL OUTSIDE OF THE [place] IN LAST 30 DAYS: No - HPI Onset: This morning Onset/Duration: Sudden Quality of pain: Other - Chest tightness Severity: Mild Associated symptoms: Chest pain - Chest tightness, Nausea, Shortness of breath. denies: Nonproductive cough, Productive cough, Diarrhea, Fever, Headache, Vomiting, Weakness Exacerbated by: Denies Relieved by: Denies Similar symptoms previously: Yes Recently seen / treated by doctor: Yes - Related Data Allergies/Adverse Reactions: codeine Allergy (Verified 05/11/18 10:05) Past Medical History - General Information source: Patient, [facility] Records - Social History Smoking Status: Never Smoker Chew tobacco use (# tins/day): No Frequency of alcohol use: None Drug Abuse: None Lives with: Spouse/Significant other Family History: Reviewed & Not Pertinent Patient has suicidal ideation: No Patient has homicidal ideation: No - Past Medical History Cardiac Medical History: Reports: Hx Congestive Heart Failure Denies: Hx Atrial Fibrillation, Hx Coronary Artery Disease, Hx DVT, Hx Heart Attack, Hx Hypercholesterolemia, Hx Hypertension, Hx Peripheral Vascular Disease , Hx Heart Murmur Renal/ Medical History: Reports: Hx Ovarian Cysts. Denies: Hx End Stage Renal Disease, Hx Kidney Stones, Hx Peritoneal Dialysis, Hx Pelvic Inflammatory Disease Malignancy Medical History: Denies: Hx Breast Cancer, Hx Cervical Cancer, Hx Ovarian Cancer Psychiatric Medical History: Reports: Hx Depression - Recently diagnosed after the of her mother last month. Denies: Hx Bipolar Disorder, Hx Post Traumatic Stress Disorder, Hx Schizophrenia Past Surgical History: Reports: Hx Gynecologic Surgery - ovarian cysts, Other - Patient just admitted post ovarian cyst removal - Immunizations Hx Diphtheria, Pertussis, Tetanus Vaccination: Yes Review of Systems - Review of Systems Notes: REVIEW OF SYSTEMS: CONSTITUTIONAL : Denies fever, chills, or sweats. Denies recent illness. Denies weight loss, recent hospitalizations. EENT: Denies visual changes, eye pain. Denies sore throat, oral lesions, difficulty swallowing. CARDIOVASCULAR: Denies palpitations. Denies lower extremity edema. RESPIRATORY: Denies cough. Denies wheezing. GASTROINTESTINAL: Denies abdominal pain or distention. Denies vomiting, or diarrhea. Denies blood in vomitus, stools, or per rectum. Denies black, tarry stools. Denies constipation. GENITOURINARY: Denies difficulty urinating, painful urination, frequency, blood in urine, or vaginal discharge. MUSCULOSKELETAL: Denies back or neck pain or stiffness. Denies joint pain or swelling. SKIN: Denies rash, lesions or sores. HEMATOLOGIC : Denies easy bruising or bleeding. LYMPHATIC: Denies swollen glands. NEUROLOGICAL: Denies confusion or altered mental status. Denies loss of consciousness. Denies dizziness or lightheadedness. Denies headache. Denies weakness or paralysis. Denies problems difficulty with ambulation, slurred speech. Denies sensory loss, numbness, or tingling. Denies seizures. PSYCHIATRIC: Denies anxiety or stress. Denies depression, suicidal ideation, or homicidal ideation. Denies visual or auditory hallucinations. PHYSICAL EXAMINATION: GENERAL: Well-appearing, well-nourished and in no acute distress. HEAD: Atraumatic, normocephalic. EYES: Pupils equal round and reactive to light, extraocular movements intact, conjunctiva are normal. ENT: Nares patent, oropharynx clear without exudates. Moist mucous membranes. NECK: Normal range of motion, supple without lymphadenopathy LUNGS: Breath sounds clear to auscultation bilaterally and equal. No wheezes rales or rhonchi. HEART: Regular rate and rhythm without murmurs ABDOMEN: Soft, nontender, nondistended abdomen. No guarding, no rebound. No masses appreciated. Female : deferred Musculoskeletal: Normal range of motion, no pitting or edema. No cyanosis. NEUROLOGICAL: Cranial nerves grossly intact. Normal speech, normal gait. Normal sensory, motor exams PSYCH: Normal mood, normal affect. SKIN: Warm, Dry, normal turgor, no rashes or lesions noted. Physical Exam - Vital signs Vitals: Temp Pulse Resp BP Pulse Ox 98.4 F 79 18 129/71 H 96 09/01/18 00:13 09/01/18 00:13 09/01/18 00:13 09/01/18 00:13 09/01/18 00:13 Course - Re-evaluation Re-evalutation: 09/01/18 02:24 Laboratory 09/01/18 09/01/18 09/01/18 00:40 00:44 00:44 WBC 9.7 RBC 4.50 Hgb 13.2 Hct 38.5 MCV 86 MCH 29.2 MCHC 34.1 RDW 13.7 Plt Count 297 Seg Neutrophils % 59.5 Lymphocytes % 32.4 Monocytes % 6.0 Eosinophils % 1.1 Basophils % 1.0 Absolute Neutrophils 5.8 Absolute Lymphocytes 3.2 Absolute Monocytes 0.6 Absolute Eosinophils 0.1 Absolute Basophils 0.1 Sodium Cancelled Potassium Cancelled Chloride Cancelled Carbon Dioxide Cancelled Anion Gap Cancelled BUN Cancelled Creatinine Cancelled Est GFR ( Amer) Cancelled Est GFR (Non-Af Amer) Cancelled Glucose Cancelled Calcium Cancelled Total Bilirubin Cancelled Direct Bilirubin Cancelled Neonat Total Bilirubin Cancelled Neonat Direct Bilirubin Cancelled Neonat Indirect Bili Cancelled AST Cancelled ALT Cancelled Alkaline Phosphatase Cancelled Creatine Kinase Cancelled CK-MB (CK-2) Troponin I NT-Pro-B Natriuret Pep 82 Total Protein Cancelled Albumin Cancelled 09/01/18 09/01/18 09/01/18 00:44 01:23 01:23 WBC RBC Hgb Hct MCV MCH MCHC RDW Plt Count Seg Neutrophils % Lymphocytes % Monocytes % Eosinophils % Basophils % Absolute Neutrophils Absolute Lymphocytes Absolute Monocytes Absolute Eosinophils Absolute Basophils Sodium 142.2 Potassium 3.9 Chloride 102 Carbon Dioxide 25 Anion Gap 15 BUN 13 Creatinine 0.44 L Est GFR ( Amer) > 60 Est GFR (Non-Af Amer) > 60 Glucose 109 Calcium 9.7 Total Bilirubin 0.4 Direct Bilirubin 0.2 Neonat Total Bilirubin Not Reportable Neonat Direct Bilirubin Not Reportable Neonat Indirect Bili Not Reportable AST 51 H ALT 57 H Alkaline Phosphatase 78 Creatine Kinase 30 CK-MB (CK-2) Cancelled < 0.22 Troponin I Cancelled < 0.012 NT-Pro-B Natriuret Pep Total Protein 7.5 Albumin 4.4 Temp Pulse Resp BP Pulse Ox 98.4 F 79 19 114/73 95 09/01/18 00:13 09/01/18 00:13 09/01/18 01:00 09/01/18 01:00 09/01/18 01:00 33-year-old female Acute Abdomen Series 09/01/18 01:14 IMPRESSION: Negative chest. Abundant stool in the colon copyright 2011 [employer]- All Rights Reserved 33-year-old female with congestive heart failure, hyperlipidemia, obesity presents with complaint of chest tightness that awoke her from sleep this morning and has been present all day. Patient also complaining of associated shortness of breath and nausea without vomiting. Patient has been seen here multiple times for similar symptoms. She is currently under cardiology care by Dr. Roland. Patient has undergone an echocardiogram and has a stress echo scheduled for September 02. Patient denies any recent illness, fever , chills, coughing, lower extremity edema. She states that she did experience some left upper quadrant abdominal pain that has resolved but reports a history of constipation. Vital signs reviewed upon arrival patient is afebrile, normotensive she does not appear toxic or dehydrated. She is in no acute distress. Previous nursing notes and medical records including imaging and lab were reviewed. CBC, CMP, cardiac enzymes within normal limits. Patient is already undergoing cardiology G care and has an upcoming stress echo. No evidence of heart failure on physical exam or chest x-ray. Patient was reassured. She is declining any nausea medication. Patient urged to keep her upcoming appointment with cardiology. HEART Score: History-0 ECG-0 Age- Risk Factors-1 Troponin-0 Total: 1 If HEART score is = 3 AND both troponin measurements are normal, the 30 day risk of a major adverse cardiac event (all-cause mortality, myocardial infarction or need for coronary revascularization) is < 1% (Sensitivity 100%, NPV 100%). Chest pain in a patient without evidence of cardiac or other serious etiology on workup today. I discussed with patient that, based on their age, risk factors and emergency department testing today, the likelihood that their symptoms are related to a heart attack is very low (estimated risk of heart attack or over the next 30 days of less than 1%). The patient demonstrates decision making capacity and has verbalized an understanding of these risks to me. Based on this, the patient has chosen to follow-up as an outpatient. Usual chest pain return precautions reviewed. The patient states understanding and agreement with this plan. 09/01/18 10:24 09/01/18 10:25 - Vital Signs Vital signs: Temp Pulse Resp BP Pulse Ox 98.4 F 79 19 114/73 95 09/01/18 00:13 09/01/18 00:13 09/01/18 01:00 09/01/18 01:00 09/01/18 01:00 - Laboratory Result Diagrams: 09/01/18 00:44 09/01/18 01:23 Laboratory results interpreted by me: 09/01/18 01:23 Creatinine 0.44 L AST 51 H ALT 57 H - Diagnostic Test Radiology reviewed: Image reviewed, Reports reviewed - EKG Interpretation by Me EKG shows normal: Sinus rhythm Rate: Normal Rhythm: NSR When compared to previous EKG there are: No significant change Discharge - Discharge Clinical Impression: Abdominal pain, left upper quadrant Constipation Qualifiers: Constipation type: unspecified constipation type Qualified Code(s): K59.00 - Constipation, unspecified Chest pain Qualifiers: Chest pain type: unspecified Qualified Code(s): R07.9 - Chest pain, unspecified Condition: Good Disposition: HOME, SELF-CARE Instructions: Abdominal Pain ([facility]), Constipation ([facility]), Chest Pain of Unclear Cause ([facility]), Dyspnea, Nonspecific ([facility]) Additional Instructions: You were seen today for chest pain. The exact cause of your pain is unclear. However, based on your cardiac enzyme testing, chest x-ray, and EKG it does not appear that it is from an immediately life-threatening cause at this time. Although your testing here is normal is critical that you follow-up with your primary care physician for continued evaluation of this chest pain and possible stress testing. I recommended you see your physician within the next 24-48 hours to be evaluated for consideration of a stress test. Please return to emergency department immediately if you have worsening of your chest pain, shortness of breath, vomiting, become unable to exert yourself due to pain or difficulty breathing, you pass out, or have any pain that radiates into your arms, jaw, or back. Please also return if you have any additional symptoms that are concerning to you. Prescriptions: Polyethylene Glycol 3350 [Miralax Powder 17 gm/Packet] 1 packet PO DAILY #15 pkg Referrals: GINNY MCDANIELS PA [Primary Care Provider] - Follow up as needed
[2018-09-01 01:59] LABS: ALANINE AMINOTRANSFERASE 57 U/L (9-52); ALBUMIN 4.4 g/dL (3.5-5.0); ALKALINE PHOSPHATASE 78 U/L (38-126); ANION GAP 15 (5-19); ASPARTATE AMINO TRANSFERASE 51 U/L (14-36); BILIRUBIN,DIRECT 0.2 mg/dL (0.0-0.4); BILIRUBIN,TOTAL 0.4 mg/dL (0.2-1.3); BLOOD UREA NITROGEN 13 mg/dL (7-20); CALCIUM 9.7 mg/dL (8.4-10.2); CARBON DIOXIDE 25 mmol/L (22-30); CHLORIDE 102 mmol/L (98-107); CREATINE KINASE 30 U/L (30-135); GLUCOSE 109 mg/dL (75-110); POTASSIUM 3.9 mmol/L (3.6-5.0); SODIUM 142.2 mmol/L (137-145); TOTAL PROTEIN 7.5 g/dL (6.3-8.2)
[2018-09-01 02:00] VITALS: BP 114/73
[2018-09-01 02:13] LABS: CREATINE KINASE MB < 0.22 ng/mL (<4.55); TROPONIN I < 0.012 ng/mL
--- NOTE | 2018-09-01 02:19 | RADIOLOGY REPORT (SQ) ---
EXAM DESCRIPTION: XR ABDOMEN SUPINE AND ERECT WITH CHEST (ABD ACUTE SERIES) COMPLETED DATE/TME: 09/01/2018 01:14 CLINICAL HISTORY: 33 years, Female, Abdominal pain, history of constipation COMPARISON: Chest x-ray 11-18 NUMBER OF VIEWS: 4 TECHNIQUE: Upright chest with supine and erect views of the abdomen LIMITATIONS: None. FINDINGS: The heart size is normal. Lungs are clear. No pneumothorax. No free air under the hemidiaphragms. The bowel gas pattern is nonspecific. No free air. Abundant stool in the colon. IMPRESSION: Negative chest. Abundant stool in the colon copyright 2010 [employer]- All Rights Reserved
[2018-09-01] MEDS ORDERED: ONDANSETRON 4 MG TAB.RAPDIS PO ONE (02:26)
[2018-09-01] MEDS ORDERED: ONDANSETRON ODT 4 MG TAB (6 TAB/ER DISP) PO PRN (02:26)
[2018-09-01] MEDS ORDERED: MAGNESIUM CITRATE 296 ML BOTTLE PO ONE (02:27)
--- NOTE | 2018-09-01 13:12 | EKG REPORT ---
SEVERITY:- NORMAL ECG - SINUS RHYTHM : Confirmed by: Karis Ashby MD 01-Sep-2018 13:11:22
== END 2018-09-01 02:49 | disposition home or self-care (01) ==
LOC: ER 23:57
DX: R10.12 Left upper quadrant pain (principal); K59.00 Constipation, unspecified; R07.9 Chest pain, unspecified; R11.0 Nausea; R06.02 Shortness of breath; E66.9 Obesity, unspecified; I50.9 Heart failure, unspecified; E78.5 Hyperlipidemia, unspecified
CPT/HCPCS: 93005; 99285; 36415; 82553; 82550; 85025; 80053; 84484; 83880; 74022; 93010; J3490; S0119

== ENCOUNTER → 2018-09-29 | Outpatient (CLI) | payer OTHER ==
--- NOTE | 2018-09-29 10:40 | WOMENS IMAGING REPORT ---
EXAM DESCRIPTION: U/S ABDOMEN LIMITED COMPLETED DATE/TIME: 09/29/2018 10:21 am REASON FOR STUDY: R94.5 ABNORMAL RESULTS OF LIVER FUNCTION STUDIES R94.5 ABNORMAL RESULTS OF LIVER FUNCTION STUDIES R79.89 OTHER SPECIFIED ABNORMAL FINDINGS OF BLOOD CHEMISTRY COMPARISON: None. TECHNIQUE: Dynamic and static grayscale images acquired of the abdomen and recorded on PACS. Additio nal selected color Doppler and spectral images recorded. Note: Study does not meet criteria for a complete doppler/duplex scan LIMITATIONS: None. FINDINGS: PANCREAS: No masses. Visualized pancreatic duct normal caliber. LIVER: Echotexture is coarse with increased echogenicity consistent with fatty infiltration. Tiny 5 mm cyst in the left lobe. LIVER VASCULATURE: Normal directional flow of the main portal vein and hepatic veins. GALLBLADDER: No stones. Normal wall thickness. No pericholecystic fluid. ULTRASOUND-DETECTED DE LEON'S SIGN: Negative. INTRAHEPATIC DUCTS AND COMMON DUCT: CBD and intrahepatic ducts normal caliber. No filling defects. INFERIOR VENA CAVA: Normal flow. AORTA: No aneurysm. RIGHT KIDNEY: Normal size. Normal echogenicity. No solid or suspicious masses. No hydronephrosis. No calcifications. PERITONEAL AND PLEURAL SPACES: No ascites or effusions. OTHER: No other significant finding. IMPRESSION: FATTY LIVER. NO OTHER SIGNIFICANT FINDING. TECHNICAL DOCUMENTATION: JOB ID: [id number] [employer]- All Rights Reserved Reading location - IP/workstation name: [email or web address]
== END ==
LOC: WI 09:45
PROVIDERS: ATTEND Internal Medicine Cardiovascular Disease
DX: K76.0 Fatty (change of) liver, not elsewhere classified (principal); R94.5 Abnormal results of liver function studies; R79.89 Other specified abnormal findings of blood chemistry
CPT/HCPCS: 76705